=== PATIENT | male | born 1950 | race Caucasian/White ===

== ENCOUNTER 2018-02-27 11:21 | Inpatient (IN) ==
[2018-02-27] MEDS ORDERED: Levofloxacin 750 MG/150 ML 750 MG/150 ML BAG IVPB ONE (11:23)
[2018-02-27] MEDS ORDERED: Piperacillin/Tazobactam 3.375 GM in Water for inj. (sterile) 20 ML 20 ML IVP ONE (11:23)
--- NOTE | 2018-02-27 11:26 | Emergency Department Note ---
Disposition Clinical Impression: Sepsis syndrome, UTI (urinary tract infection) due to urinary indwelling catheter Disposition: Admitted As Inpatient Condition: Fair General Adult HPI - General Chief complaint: ED General Medical Stated complaint: Fever, Cough Time Seen by Provider: 02/27/18 11:23 Source: EMS, other (Supervisor Seaming) Mode of arrival: EMS Limitations: altered mental status (MRDD) Nursing Notes Reviewed: Yes Vital Signs Reviewed: Yes - History of Present Illness HPI Narrative: Patient reportedly has had no specific complaint but he is found at work shop today to be tachycardic and febrile to 105. He did receive 2 Tylenol at 10:55 AM has been transported by private ambulance for evaluation. He is no tenderness a little cough and may be gagging at workshop. He has not had any apparent shortness of breath or sputum production. He has not vomited nor had diarrhea. 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 He has had good urine output and presents with a full Raymond catheter bag. Alexandria lima did report of some aching in his back and neck to EMS. Denying any specific pain or complaint on arrival here. No other significant history is obtainable from the patient. Supervisor Seaming states that he has a baseline does not complain about anything. He is reported to have no ill exposures. For EMS the patient had a blood pressure 117/79, heart rate of 141 with respiratory rate of 16. They reported a saturation of 96% on room air. They recorded a temperature of 105. 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 Denies: confusion, chest pain, diaphoresis, headaches, loss of appetite, malaise, rash, seizure, shortness of breath, syncope, weakness Treatments Prior to Arrival: other (Acetaminophen) - Related Data Home Medications Medication Instructions Recorded Confirmed RX: Atorvastatin [Lipitor] 10 mg PO HS 02/05/15 02/27/18 RX: Docusate Sodium [Colace] 200 mg PO BID 02/05/15 02/27/18 RX: Fenofibrate [Tricor] 67 mg PO HS 02/05/15 02/27/18 RX: Magnesium Oxide [Magnesium] 250 mg PO QAM 02/05/15 02/27/18 RX: Olopatadine HCl [Patanol] 5 ml OP BID 02/05/15 02/27/18 RX: Polyethylene Glycol 3350 1 scoop PO DAILY 02/05/15 02/27/18 [MiraLAX Powder Bulk 17.9 Oz] RX: Tamsulosin [Flomax] 0.4 mg PO DAILY 02/23/15 02/27/18 Ondansetron ODT [Zofran ODT] 4 mg SL Q6HR 01/24/16 02/27/18 Albuterol Sulfate [Proair 180 mcg IH Q4H PRN 08/18/16 02/27/18 Respiclick] Ferrous Sulfate [Iron] 325 mg PO BID 08/18/16 02/27/18 Ipratropium [ATROVENT Inhaler] 1 unit IH Q6H PRN 08/18/16 02/27/18 Levalbuterol HCl [Xopenex Neb] 1.25 mg IH Q8H PRN 08/18/16 02/27/18 Loratadine [Allergy Relief] 10 mg PO DAILY 08/18/16 02/27/18 Acetaminophen [Non-Aspirin] 650 mg PO Q4H PRN 02/27/18 02/27/18 Carbamide Peroxide [Ear Drops] 3 drop OT BID 02/27/18 02/27/18 Cholecalciferol (Vitamin D3) 2,000 unit PO DAILY 02/27/18 02/27/18 [Children's Vitamin D3] Desitin (Zinc Oxide) [Desitin 1 appl TP BID 02/27/18 02/27/18 Diaper Rash 40 % Paste] Dextran 70/Hypromellose 1 drop OP BID 02/27/18 02/27/18 [Artificial Tears] Emollient Combination No.108 237 ml TP DAILY 02/27/18 02/27/18 [Lubriskin] RX: B Complex with Vitamin C 1 each PO BID 02/27/18 02/27/18 [Guerita-Bee with C] RX: Lisinopril 2.5 mg PO DAILY 02/27/18 02/27/18 RX: hydroCHLOROthiazide 25 mg PO DAILY 02/27/18 02/27/18 [Hydrochlorothiazide] Allergies Allergy/AdvReac Type Severity Reaction Status Date / Time apples Allergy See Uncoded 02/07/15 14:04 Comments environmental allergies Allergy See Uncoded 02/07/15 14:04 Comments All systems ED: reviewed and negative except as stated. Past Medical History - Past Medical History Source: old records reviewed, nursing notes reviewed, other (Supervisor Seaming) Medical history: Reports: asthma, GERD, hyperlipidemia, other (CP, MRDD, anemia) Surgical history: Reports: no surgical history Psychiatric history: Reports: other - Social History Smoking Status: Unknown if ever smoked Smokeless Tobacco Status: No Alcohol use: Reports: none Drug use: Reports: none Physical Exam - General Limitations: physical limitation General appearance: alert, in no apparent distress, other (Mildly flushed, pleasant and interactive) - Head Head exam: atraumatic, normocephalic, normal inspection - Eye Eye exam: Present: normal appearance, PERRL, EOMI. Absent: scleral icterus, conjunctival injection - ENT ENT exam: normal exam, normal oropharynx, mucous membranes moist - Neck Neck exam: Present: normal inspection, full ROM, trachea midline - Chest Chest inspection: Present: normal inspection, symmetric chest wall rise - Respiratory Respiratory exam: Present: normal lung sounds bilaterally. Absent: respiratory distress, wheezes, prolonged expiratory phase - Cardiovascular Cardiovascular exam: Present: regular rate, normal rhythm, tachycardia, normal heart sounds - Abdominal Exam Abdominal exam: Present: soft, Non-Tender, normal bowel sounds, other (Raymond catheter is draining a yellow, cloudy urine). Absent: tenderness, distention, guarding, rebound, rigidity - Extremities Exam Extremities exam: Present: normal inspection, full ROM, normal capillary refill. Absent: tenderness, pedal edema - Expanded Lower Extremity Exam Neurovascular/Tendon exam: Present: normal capillary refill Gait: not tested/not observed - Back Exam Back exam: Present: normal inspection, full ROM. Absent: tenderness, CVA tenderness (R), CVA tenderness (L) - Neurological Exam Neurological exam: Present: alert. Absent: motor sensory deficit - Psychiatric Psychiatric exam: Present: normal affect, normal mood. Absent: agitated, anxious - Skin Skin exam: Present: warm, dry, intact, normal color. Absent: cyanosis, diaphoresis, pallor Course Course Narrative: Patient is mainly started on aggressive IV fluids and IV antibiotics. Lactic acid, blood cultures and urine culture have been ordered. Given his significant tachycardia and fever, I anticipate further inpatient care upon return of testing. 1225: With return of all laboratory testing, a page has been placed to Dr. Munoz to discuss further inpatient care. Vital Signs Temperature 103.0 F H 02/27/18 11:23 Pulse Rate 139 02/27/18 11:23 Respiratory Rate 22 02/27/18 11:23 Blood Pressure 141/68 02/27/18 11:23 O2 Sat by Pulse Oximetry 94 02/27/18 11:23 Temperature 103.0 F H 02/27/18 11:23 Pulse Rate 118 02/27/18 13:01 Respiratory Rate 20 02/27/18 13:01 Blood Pressure 177/88 02/27/18 13:01 O2 Sat by Pulse Oximetry 98 02/27/18 13:01 Oxygen Delivery Oxygen Delivery Nasal Cannula Medical Decision Making - Medical Records Medical records reviewed: Yes I reviewed the patient's medical records. - Lab Data Lab results reviewed: Yes I reviewed the patient's lab results. Result diagrams: 02/27/18 11:55 02/27/18 11:55 Lab Results 02/27/18 02/27/18 02/27/18 Range/Units 11:45 11:55 11:55 WBC 13.9 H (4.3-11.1) K/mcL RBC 3.44 L (4.19-5.50) M/mcL Hgb 10.9 L (12.9-16.9) g/dL Hct 32.7 L (37.5-50.1) % MCV 95.1 (83.0-100.0) fL MCH 31.7 (28.0-33.3) pg MCHC 33.3 (31.6-35.5) g/dL RDW 13.1 (11.5-14.5) % Plt Count 265 (140-400) K/mcL MPV 9.5 (9.4-12.4) fL Immature Gran % 0.5 (0-4) % Seg Neutrophils % 93.4 % Lymphocytes % 2.5 % Monocytes % 2.3 % Eosinophils % 1.2 % Basophils % 0.1 % Neutrophils # 13.0 H (1.6-8.9) K/mcL Lymphocytes # 0.4 L (0.6-4.6) K/mcL Monocytes # 0.3 (0.0-1.3) K/mcL Eosinophils # 0.2 (0.0-0.6) K/mcL Basophils # 0.0 (0.0-0.2) K/mcL PT 13.5 H (9.4-12.1) Seconds INR 1.2 APTT 28.8 (26.0-36.0) Seconds Sodium (136-145) mEq/L Potassium (3.5-5.1) mEq/L Chloride (98-107) mEq/L Carbon Dioxide (23-29) mEq/L BUN (8-23) mg/dL Creatinine (0.70-1.30) mg/dL Est GFR ( Amer) (> 60) Est GFR (Non-Af Amer) (> 60) BUN/Creatinine Ratio (6-26) Glucose (70-105) mg/dL Calculated Osmolality (280-300) Lactic Acid (0.5-2.2) mmol/L Calcium (8.6-10.3) mg/dL Phosphorus (2.7-4.5) mg/dL Magnesium (1.6-2.6) mg/dL Total Bilirubin (0.3-1.0) mg/dL Direct Bilirubin (0.0-0.2) mg/dL Indirect Bilirubin (0.0-1.2) mg/dL AST (13-39) Units/L ALT (7-52) Units/L Alkaline Phosphatase (34-104) Units/L Troponin I (< 0.04) ng/mL Serum Total Protein (6.4-8.9) g/dL Albumin (3.5-5.7) g/dL Globulin (2.4-3.5) g/dL Albumin/Globulin Ratio (1.1-2.2) Urine Color Yellow (Yellow) Urine Clarity Turbid A (Clear) Urine pH 7.0 (5.0-8.0) pH Units Ur Specific [place] 1.015 (1.010-1.025) Urine Protein 30 H (Neg-Trace) mg/dL Urine Glucose (UA) Normal (Normal) mg/dL Urine Ketones Negative (Negative) mg/dL Urine Blood Moderate H (Negative) Urine Nitrite Positive A (Negative) Urine Bilirubin Negative (Negative) Urine Urobilinogen Normal (Normal) mg/dL Ur Leukocyte Esterase Large H (Negative) Urine Microscopic RBC 15-30 H (0-3) per hpf Urine Microscopic WBC 15-30 H (0-3) per hpf Ur Squamous Epith Cells Few (None-Few) per lpf Amorphous Sediment Few (Few) Urine Bacteria Many H (None-Few) per hpf Urine Mucus Few (Few) Ur Culture Indicated? YES A (NO) 02/27/18 02/27/18 Range/Units 11:55 11:55 WBC (4.3-11.1) K/mcL RBC (4.19-5.50) M/mcL Hgb (12.9-16.9) g/dL Hct (37.5-50.1) % MCV (83.0-100.0) fL MCH (28.0-33.3) pg MCHC (31.6-35.5) g/dL RDW (11.5-14.5) % Plt Count (140-400) K/mcL MPV (9.4-12.4) fL Immature Gran % (0-4) % Seg Neutrophils % % Lymphocytes % % Monocytes % % Eosinophils % % Basophils % % Neutrophils # (1.6-8.9) K/mcL Lymphocytes # (0.6-4.6) K/mcL Monocytes # (0.0-1.3) K/mcL Eosinophils # (0.0-0.6) K/mcL Basophils # (0.0-0.2) K/mcL PT (9.4-12.1) Seconds INR APTT (26.0-36.0) Seconds Sodium 131 L (136-145) mEq/L Potassium 4.3 (3.5-5.1) mEq/L Chloride 94 L (98-107) mEq/L Carbon Dioxide 28 (23-29) mEq/L BUN 31 H (8-23) mg/dL Creatinine 1.65 H (0.70-1.30) mg/dL Est GFR ( Amer) 51 L (> 60) Est GFR (Non-Af Amer) 42 L (> 60) BUN/Creatinine Ratio 19 (6-26) Glucose 106 H (70-105) mg/dL Calculated Osmolality 279 L (280-300) Lactic Acid 2.1 (0.5-2.2) mmol/L Calcium 11.0 H (8.6-10.3) mg/dL Phosphorus 2.3 L (2.7-4.5) mg/dL Magnesium 1.4 L (1.6-2.6) mg/dL Total Bilirubin 0.5 (0.3-1.0) mg/dL Direct Bilirubin 0.1 (0.0-0.2) mg/dL Indirect Bilirubin 0.4 (0.0-1.2) mg/dL AST 30 (13-39) Units/L ALT 30 (7-52) Units/L Alkaline Phosphatase 89 (34-104) Units/L Troponin I < 0.03 (< 0.04) ng/mL Serum Total Protein 7.5 (6.4-8.9) g/dL Albumin 3.4 L (3.5-5.7) g/dL Globulin 4.1 H (2.4-3.5) g/dL Albumin/Globulin Ratio 0.8 L (1.1-2.2) Urine Color (Yellow) Urine Clarity (Clear) Urine pH (5.0-8.0) pH Units Ur Specific [place] (1.010-1.025) Urine Protein (Neg-Trace) mg/dL Urine Glucose (UA) (Normal) mg/dL Urine Ketones (Negative) mg/dL Urine Blood (Negative) Urine Nitrite (Negative) Urine Bilirubin (Negative) Urine Urobilinogen (Normal) mg/dL Ur Leukocyte Esterase (Negative) Urine Microscopic RBC (0-3) per hpf Urine Microscopic WBC (0-3) per hpf Ur Squamous Epith Cells (None-Few) per lpf Amorphous Sediment (Few) Urine Bacteria (None-Few) per hpf Urine Mucus (Few) Ur Culture Indicated? (NO) - Radiology Data Radiology results reviewed: Yes I reviewed the patient's radiology results. Single view chest x-ray is performed. This does not demonstrate evidence for infiltrate, effusion, pneumothorax, foreign body or heart failure. Patient has right lower lung "extrapleural fat" that is unchanged from previous imaging. The cardiac silhouette is normal. I do not see abnormality to the osseous structures of the chest. This is on my interpretation. Impressions Chest X-Ray 02/27/18 11:24 IMPRESSION: Large hiatal hernia no acute cardiopulmonary disease. D/ / Shayne Hernandez MD / Shayne Hernandez MD Interpreting Provider: Shayne Hernandez MD Critical Care Time Critical Care Time: Yes Total Critical Care Time: 50 Attestation: As this patient did present with signs and symptoms of potential life- threatening illness requiring my urgent intervention, total critical care time in this patient's care has been 60 minutes, not withstanding separately reportable procedures.
[2018-02-27 11:51] LABS: Bilirubin,Urine Negative (Negative); Blood,Urine Moderate (Negative); Clarity,Urine Turbid (Clear); Color,Urine Yellow (Yellow); Glucose,Urine (UA) Normal (Normal); Ketones,Urine Negative (Negative); Leukocyte Esterase,Urine Large (Negative); Nitrite,Urine Positive (Negative); Protein,Urine 30 mg/dL (Neg-Trace); Specific Gravity,Urine 1.015 (1.010-1.025); Urobilinogen,Urine Normal (Normal)
[2018-02-27 11:57] LABS: Amorphous Sediment,Urine Few (Few); Bacteria,Urine Many per hpf (None-Few); Mucus,Urine Few (Few); RBC,Urine 15-30 per hpf (0-3); Squamous Epithelial Cell,Urine Few per lpf (None-Few); WBC,Urine 15-30 per hpf (0-3)
[2018-02-27 12:02] LABS: Basophils % 0.1 %; Eosinophils # 0.2 K/mcL (0.0-0.6); Eosinophils % 1.2 %; Hematocrit 32.7 % (37.5-50.1); Hemoglobin 10.9 g/dL (12.9-16.9); Immature Granulocytes % 0.5 % (0-4); Lymphocytes % 2.5 %; Mean Corpuscular HGB Conc 33.3 g/dL (31.6-35.5); Mean Corpuscular Hemoglobin 31.7 pg (28.0-33.3); Mean Corpuscular Volume 95.1 fL (83.0-100.0); Mean Platelet Volume 9.5 fL (9.4-12.4); Monocytes # 0.3 K/mcL (0.0-1.3); Monocytes % 2.3 %; Platelet Count 265 K/mcL (140-400); Red Blood Count 3.44 M/mcL (4.19-5.50); Red Cell Distribution Width 13.1 % (11.5-14.5); Segmented Neutrophils % 93.4 %
[2018-02-27 12:08] LABS: Lymphocytes # 0.4 K/mcL (0.6-4.6)
[2018-02-27] MEDS: 0.9 % Sodium Chloride 1,000 ML IVC SCH ×3 (12:10→17:17)
[2018-02-27 12:11] LABS: INR 1.2; Prothrombin Time 13.5 Seconds (9.4-12.1)
[2018-02-27 12:13] LABS: Activated Partial Thrombo Time 28.8 Seconds (26.0-36.0)
[2018-02-27 12:18] LABS: Alanine Aminotransferase 30 Units/L (7-52); Albumin 3.4 g/dL (3.5-5.7); Albumin/Globulin Ratio 0.8 (1.1-2.2); Alkaline Phosphatase 89 Units/L (34-104); Aspartate Amino Transferase 30 Units/L (13-39); BUN/Creatinine Ratio 19 (6-26); Bilirubin,Direct 0.1 mg/dL (0.0-0.2); Bilirubin,Indirect 0.4 mg/dL (0.0-1.2); Bilirubin,Total 0.5 mg/dL (0.3-1.0); Blood Urea Nitrogen 31 mg/dL (8-23); Carbon Dioxide 28 mEq/L (23-29); Chloride 94 mEq/L (98-107); Globulin 4.1 g/dL (2.4-3.5); Glucose 106 mg/dL (70-105); Magnesium 1.4 mg/dL (1.6-2.6); Osmolality,Calculated 279 (280-300); Phosphorous 2.3 mg/dL (2.7-4.5); Potassium 4.3 mEq/L (3.5-5.1); Sodium 131 mEq/L (136-145); Total Protein 7.5 g/dL (6.4-8.9); eGFR For Non-African Americans 42 (> 60)
[2018-02-27 12:22] LABS: Troponin I < 0.03 ng/mL (< 0.04)
[2018-02-27] MEDS ORDERED: Naloxone 0.4 MG/ML INJ IVP PRN (13:25)
[2018-02-27] MEDS ORDERED: 0.9 % Sodium Chloride 1,000 ML IVC SCH (13:25)
[2018-02-27] MEDS ORDERED: Ibuprofen 400 MG TABLET PO PRN (13:25)
[2018-02-27] MEDS ORDERED: Ipratropium 1 PUFF INHALER IH PRN (16:00)
[2018-02-27] MEDS: Acetaminophen 325 MG TABLET PO PRN (16:50)
[2018-02-27] MEDS: Ondansetron ODT 4 MG TAB.RAPDIS SL SCH (17:17)
--- NOTE | 2018-02-27 17:44 | Internal Med History&Physical ---
Date of Encounter: 02/27/18 Time of Encounter: 17:20 Assessment and Plan (1) Sepsis syndrome Current visit: Yes Status: Acute Possible UTI. He has been started on Levaquin and Rocephin empirically. Urine culture has been ordered. Lactobacillus will be added. (2) Anemia Current visit: Yes Status: Acute Likely due to chronic kidney disease. Anemia testing 12/13/2017 showed no fac tor deficiency. Qualifiers: Anemia type: unspecified type Qualified Code(s): D64.9 - Anemia, unspecified (3) CKD (chronic kidney disease) stage 3, GFR 30-59 ml/min Current visit: Yes Status: Chronic Monitor renal indices. (4) Hypomagnesemia Current visit: Yes Status: Acute Magnesium level low at 1.4. Increase magnesium oxide to 400 mg twice a day (5) Hypercalcemia Current visit: No Status: Resolved Corrected calcium level approximately 11.5. Recheck calcium and check vitamin D levels in a.m. Internal Medicine - H&P: HPI Chief complaint: Fever and tachycardia Admitted From: Emergency Dept History of present illness: Mr. Burns is a 67 year old male who was brought to emergency room after he was found to have temperature 100.5 tachycardia at workshop. He was evaluated in emergency room and admitted to [facility] floor with diagnosis of UTI with sepsis. Most recent hospitalization was January 2015 for possible UTI. He has an ind welling Raymond catheter because of BPH. His history is significant otherwise for right kidney atrophy with moderate hydronephrosis and hydroureter and right renal cyst measuring 5.8 x [address] scan in 02/26/2014. CT of abdomen pelvis 01/24/2016 did not show these findings. He had left hydronephrosis with small left ureter dilatation seen during his August 2014 hospitalization. These were not seen on CT 01/24/2016. He has known BPH and CKD stage 3. Past Med Surg Social Fam HX - Past Medical History Medical history: asthma, GERD, hyperlipidemia, other Additional medical history: Right Kidney Cervical Stenosis. Hypomagnesemia. Anemia. hiatal hernia. mild aortic tricuspid insuff. cerebral palsy Psychiatric history: other - Past Surgical History Surgical History: no surgical history Additional surgical history: left orchiectomy - Social History Smoking Status: Unknown if ever smoked Smokeless Tobacco Status: No Alcohol use: none Drug use: none Internal Medicine - H&P: Meds Atorvastatin [Lipitor] 10 mg PO HS 02/05/15 [History] Docusate Sodium [Colace] 200 mg PO BID 02/05/15 [History] Fenofibrate [Tricor] 67 mg PO HS 02/05/15 [History] Magnesium Oxide [Magnesium] 250 mg PO QAM 02/05/15 [History] Olopatadine HCl [Patanol] 5 ml OP BID 02/05/15 [History] Polyethylene Glycol 3350 [MiraLAX Powder Bulk 17.9 Oz] 1 scoop PO DAILY 02/05/15 [History] Tamsulosin [Flomax] 0.4 mg PO DAILY 02/23/15 [History] Ondansetron ODT [Zofran ODT] 4 mg SL Q6HR 01/24/16 [History] Albuterol Sulfate [Proair Respiclick] 180 mcg IH Q4H PRN 08/18/16 [History] Ferrous Sulfate [Iron] 325 mg PO BID 08/18/16 [History] Ipratropium [ATROVENT Inhaler] 1 unit IH Q6H PRN 08/18/16 [History] Levalbuterol HCl [Xopenex Neb] 1.25 mg IH Q8H PRN 08/18/16 [History] Loratadine [Allergy Relief] 10 mg PO DAILY 08/18/16 [History] Acetaminophen [Non-Aspirin] 650 mg PO Q4H PRN 02/27/18 [History] B Complex with Vitamin C [Guerita-Bee with C] 1 each PO BID 02/27/18 [History] Carbamide Peroxide [Ear Drops] 3 drop OT BID 02/27/18 [History] Cholecalciferol (Vitamin D3) [Children's Vitamin D3] 2,000 unit PO DAILY 02/27/18 [History] Desitin (Zinc Oxide) [Desitin Diaper Rash 40 % Paste] 1 appl TP BID 02/27/18 [History] Dextran 70/Hypromellose [Artificial Tears] 1 drop OP BID 02/27/18 [History] Emollient Combination No.108 [Lubriskin] 237 ml TP DAILY 02/27/18 [History] Lisinopril 2.5 mg PO DAILY 02/27/18 [History] hydroCHLOROthiazide [Hydrochlorothiazide] 25 mg PO DAILY 02/27/18 [History] Allergy/AdvReac Type Severity Reaction Status Date / Time apples Allergy See Uncoded 02/07/15 14:04 Comments environmental allergies Allergy See Uncoded 02/07/15 14:04 Comments All Systems PM: A 10-system review of systems was performed and is negative for pertinent findings except as documented above in the HPI. Review of systems: Gen.: His weight has minimally changed from 197 pounds at the August 2014 hospitalization to 90.5 kg at present Cardiovascular. The chart reports aortic and tricuspid insufficiency. There is no known hypertension or DC. He had an echocardiogram done February 2014 which showed LVEF 65% with normal LV systolic and diastolic function. No significant valvular normalities reported. There is no known DVT or pulmonary embolus. Respiratory: He denies ever being a cigarette smoker. The chart reports diagnoses of chronic bronchitis and asthma. GI: He has a significant hiatal hernia with much of the stomach in the chest cavity. He has GERD and history of hemorrhoids. He had a possible small bowel obstruction with hospitalization at [facility] January 2014 which resolved spontaneously. He has an umbilical hernia. : As per history of present illness Endocrine: He has no known diabetes or thyroid disease but does have hyperlipidemia Hematology/oncology: He has anemia without factor deficiency seen on workup August 2014. There is no other known blood disorders or internal malignancies Psychiatric: He has no known psychiatric history Neurologic: He has MRDD and cerebral palsy but no large distribution strokes or seizures. [place] skeletal: He does not walk. The chart reports a diagnosis of cervical stenosis. - Constitutional Vitals: Temp Pulse Resp BP Pulse Ox 100.4 F H 117 22 107/70 96 02/27/18 13:45 02/27/18 13:45 02/27/18 13:45 02/27/18 13:45 02/27/18 13:45 Exam: Gen.: He is a well-developed well-nourished male lying comfortably in bed who appears in no acute distress. He denies pain or dyspnea. HEENT: Head is atraumatic and normocephalic. Eyes: EOMI. There is no scleral icterus. Mouth: Mucosa is moist. Neck: Supple and nontender. There is no thyromegaly or adenopathy noted. Heart: Regular without murmurs gallops or ectopics Lungs: No wheezes or crackles are heard. Abdomen: Soft and nontender. No masses or guarding are noted. Extremities: He is wearing CHARANJIT hose which I did not remove. There is no pitting edema palpated through the CHARANJIT hose. Neurologic: Mental status: He is awake and alert and attempts to answer questions. His speech is sometimes not understandable. Cranial nerves: Smile is symmetric. Forehead wrinkles bilaterally. Tongue protrudes midline. EOMI. Motor: He does not pronate his arms well. There is no pronator drift from his baseline position. Cerebellar: Finger to nose is intact bilaterally. Skin: Warm and dry Internal Med - H&P Results - Labs CBC & Chem 7: 02/27/18 11:55 02/27/18 11:55 Labs: Short CBC 02/27/18 Range/Units 11:55 WBC 13.9 H (4.3-11.1) K/mcL Hgb 10.9 L (12.9-16.9) g/dL Hct 32.7 L (37.5-50.1) % Plt Count 265 (140-400) K/mcL Neutrophils # 13.0 H (1.6-8.9) K/mcL BMP 02/27/18 11:55 Sodium 131 L Potassium 4.3 Chloride 94 L Carbon Dioxide 28 BUN 31 H Creatinine 1.65 H Glucose 106 H Calcium 11.0 H Cardiac Enzymes 02/27/18 Range/Units 11:55 Troponin I < 0.03 (< 0.04) ng/mL Liver Function 02/27/18 Range/Units 11:55 Total Bilirubin 0.5 (0.3-1.0) mg/dL Direct Bilirubin 0.1 (0.0-0.2) mg/dL AST 30 (13-39) Units/L ALT 30 (7-52) Units/L Alkaline Phosphatase 89 (34-104) Units/L Albumin 3.4 L (3.5-5.7) g/dL Urine 02/27/18 Range/Units 11:45 Urine Color Yellow (Yellow) Urine Clarity Turbid A (Clear) Urine pH 7.0 (5.0-8.0) pH Units Ur Specific [place] 1.015 (1.010-1.025) Urine Protein 30 H (Neg-Trace) mg/dL Urine Glucose (UA) Normal (Normal) mg/dL - Impressions ITS Impressions Chest X-Ray 02/27/18 11:24 IMPRESSION: Large hiatal hernia. No acute cardiopulmonary disease. D/ / 02/27/2018 12:00:22 Shayne Hernandez MD / [email or web address] Interpreting Provider: Shayne Hernandez MD
[2018-02-27] MEDS: Piperacillin/Tazobactam 3.375 GM in 0.9 % Sodium Chloride Mini Bag 100 ML IVPB SCH (20:37)
[2018-02-27] MEDS: Fenofibrate 54 MG TABLET PO SCH (20:38)
[2018-02-27] MEDS: Magnesium Oxide 400 MG TABLET PO SCH (20:38)
[2018-02-27] MEDS: Lactobacillus 1 EACH CAP.SPRINK PO SCH (20:38)
[2018-02-27] MEDS: (Olopatadine Hcl [Patanol] 5 ML) OP SCH (20:39)
[2018-02-27] MEDS: Levalbuterol Neb 1.25 MG/3 ML IH PRN (23:09)
[2018-02-28] MEDS: Piperacillin/Tazobactam 3.375 GM in 0.9 % Sodium Chloride Mini Bag 100 ML IVPB SCH ×3 (00:31→10:50)
[2018-02-28] MEDS: 0.9 % Sodium Chloride 1,000 ML IVC SCH (00:38)
[2018-02-28] MEDS: Ondansetron ODT 4 MG TAB.RAPDIS SL SCH ×4 (03:52→17:08)
[2018-02-28 08:36] LABS: Hematocrit 31.5 % (37.5-50.1); Hemoglobin 9.9 g/dL (12.9-16.9); Mean Corpuscular HGB Conc 31.4 g/dL (31.6-35.5); Mean Corpuscular Hemoglobin 31.8 pg (28.0-33.3); Mean Corpuscular Volume 101.3 fL (83.0-100.0); Mean Platelet Volume 9.7 fL (9.4-12.4); Platelet Count 209 K/mcL (140-400); Red Blood Count 3.11 M/mcL (4.19-5.50); Red Cell Distribution Width 13.7 % (11.5-14.5)
[2018-02-28] MEDS ORDERED: Magnesium Oxide 400 MG TABLET PO SCH (09:00)
[2018-02-28 09:24] LABS: Enterococcus by PCR Not Detected (Not Detect); Staphylococcus aureus by PCR DETECTED (Not Detect); Staphylococcus by PCR DETECTED (Not Detect); mecA Methicillin-Resist Gene DETECTED (Not Detect)
[2018-02-28 09:25] LABS: Acinetobacter baumannii by PCR Not Detected (Not Detect); Candida albicans by PCR Not Detected (Not Detect); Candida glabrata by PCR Not Detected (Not Detect); Candida krusei by PCR Not Detected (Not Detect); Candida parapsilosis by PCR Not Detected (Not Detect); Candida tropicalis by PCR Not Detected (Not Detect); Enterobacter cloacae Cmplx PCR Not Detected (Not Detect); Enterobacteriaceae by PCR Not Detected (Not Detect); Escherichia coli by PCR Not Detected (Not Detect); Klebsiella oxytoca by PCR Not Detected (Not Detect); Klebsiella pneumoniae by PCR Not Detected (Not Detect); Proteus by PCR Not Detected (Not Detect); Pseudomonas aeruginosa by PCR Not Detected (Not Detect); Serratia marcescens by PCR Not Detected (Not Detect); Streptococcus agalactiae(B)PCR Not Detected (Not Detect); Streptococcus by PCR Not Detected (Not Detect); Streptococcus pneumoniae PCR Not Detected (Not Detect); Streptococcus pyogenes (A) PCR Not Detected (Not Detect)
--- NOTE | 2018-02-28 09:56 | Internal Med Progress Note ---
Date of Encounter: 02/28/18 Time of Encounter: 09:50 - Assessment and plan (1) Sepsis syndrome Current Visit: Yes Status: Acute Assessment and plan: February 28. Serology report shows MRSA. Discontinue Zosyn and start vancomycin . Continue Levaquin and lactobacillus. (2) Anemia Current Visit: Yes Status: Acute Assessment and plan: February 28. Hemoglobin decreased to 9.9. Continue to monitor. Qualifiers: Anemia type: unspecified type Qualified Code(s): D64.9 - Anemia, un specified (3) CKD (chronic kidney disease) stage 3, GFR 30-59 ml/min Current Visit: Yes Status: Chronic Assessment and plan: February 28. Labs pending (4) Hypomagnesemia Current Visit: Yes Status: Acute Assessment and plan: February 28. Continue higher dose magnesium and monitor labs. (5) Hypercalcemia Current Visit: No Status: Acute Assessment and plan: February 28. Remain off vitamin D. Labs from this a.m. pending - Subjective Interval history: February 28. He has no new complaints and specifically denies pain or dyspnea. Temperature spiked to 106.8 last evening. Cooling blanket was applied and temperature has decreased to 99.9 now. - Constitutional Vitals: Temp Pulse Resp BP Pulse Ox 106.8 F H 141 44 105/55 94 02/27/18 23:48 02/27/18 22:22 02/27/18 23:09 02/27/18 22:22 02/27/18 23:09 Exam: He is resting comfortably in bed and appears in no acute distress. His affect is overall cheerful. I reviewed his medications and lab results. Internal Medicine: Result - Labs CBC & Chem 7: 02/28/18 08:05 02/27/18 11:55 Labs: Short CBC 02/27/18 02/28/18 Range/Units 11:55 08:05 WBC 13.9 H 19.0 H (4.3-11.1) K/mcL Hgb 10.9 L 9.9 L (12.9-16.9) g/dL Hct 32.7 L 31.5 L (37.5-50.1) % Plt Count 265 209 (140-400) K/mcL Neutrophils # 13.0 H (1.6-8.9) K/mcL BMP 02/27/18 11:55 Sodium 131 L Potassium 4.3 Chloride 94 L Carbon Dioxide 28 BUN 31 H Creatinine 1.65 H Glucose 106 H Calcium 11.0 H Cardiac Enzymes 02/27/18 Range/Units 11:55 Troponin I < 0.03 (< 0.04) ng/mL Liver Function 02/27/18 Range/Units 11:55 Total Bilirubin 0.5 (0.3-1.0) mg/dL Direct Bilirubin 0.1 (0.0-0.2) mg/dL AST 30 (13-39) Units/L ALT 30 (7-52) Units/L Alkaline Phosphatase 89 (34-104) Units/L Albumin 3.4 L (3.5-5.7) g/dL Urine 02/27/18 Range/Units 11:45 Urine Color Yellow (Yellow) Urine Clarity Turbid A (Clear) Urine pH 7.0 (5.0-8.0) pH Units Ur Specific [place] 1.015 (1.010-1.025) Urine Protein 30 H (Neg-Trace) mg/dL Urine Glucose (UA) Normal (Normal) mg/dL - ABG Interpretation ABG results: PT/INR, D-dimer PT 13.5 Seconds (9.4-12.1) H 02/27/18 11:55 - Impressions Impressions Chest X-Ray 02/27/18 11:24 IMPRESSION: Large hiatal hernia. No acute cardiopulmonary disease. D/ / 02/27/2018 12:00:22 Shayne Hernandez MD / [email or web address] Interpreting Provider: Shayne Hernandez MD - VTE Documentation of Mechanical Device: Graduated compression elastic hosiery Consult Discharge Plan - Plan Referrals: Ashley Qureshi MD [Primary Care Provider] - 1 week
[2018-02-28 10:02] LABS: Anisocytosis 1+ (Not Present); Lymphocytes # 0.8 K/mcL (0.6-4.6); Monocytes # 0.8 K/mcL (0.0-1.3); Neutrophils # 17.1 K/mcL (1.6-8.9); Platelet Estimate Normal (Normal)
[2018-02-28 10:03] LABS: Toxic Vacuolation Present (Not Present)
[2018-02-28 10:21] LABS: Potassium 4.5 mEq/L (3.5-5.1)
[2018-02-28 10:22] LABS: Albumin 2.9 g/dL (3.5-5.7); Albumin/Globulin Ratio 0.9 (1.1-2.2); Bilirubin,Total 0.9 mg/dL (0.3-1.0); Globulin 3.2 g/dL (2.4-3.5); Total Protein 6.1 g/dL (6.4-8.9)
[2018-02-28] MEDS: Magnesium Oxide 400 MG TABLET PO SCH ×2 (10:24→20:32)
[2018-02-28] MEDS: Loratadine 10 MG TABLET PO SCH (10:25)
[2018-02-28] MEDS: (Olopatadine Hcl [Patanol] 5 ML) OP SCH (10:25)
[2018-02-28] MEDS: Lactobacillus 1 EACH CAP.SPRINK PO SCH ×2 (10:25→20:31)
[2018-02-28] MEDS: Levalbuterol Neb 1.25 MG/3 ML IH PRN ×2 (12:29→21:03)
[2018-02-28] MEDS: Acetaminophen 325 MG TABLET PO PRN (13:45)
[2018-02-28] MEDS: Fenofibrate 54 MG TABLET PO SCH (20:31)
[2018-03-01] MEDS: (Olopatadine Hcl [Patanol] 5 ML) OP SCH ×3 (00:10→22:02)
[2018-03-01] MEDS: Ondansetron ODT 4 MG TAB.RAPDIS SL SCH ×4 (00:11→17:32)
[2018-03-01] MEDS: Acetaminophen 325 MG TABLET PO PRN (04:45)
[2018-03-01 05:50] LABS: Basophils % 0.3 %; Eosinophils # 0.2 K/mcL (0.0-0.6); Eosinophils % 1.7 %; Hematocrit 22.4 % (37.5-50.1); Hemoglobin 7.4 g/dL (12.9-16.9); Immature Granulocytes % 0.7 % (0-4); Lymphocytes # 0.5 K/mcL (0.6-4.6); Lymphocytes % 4.6 %; Mean Corpuscular Hemoglobin 31.5 pg (28.0-33.3); Mean Corpuscular Volume 95.3 fL (83.0-100.0); Mean Platelet Volume 9.7 fL (9.4-12.4); Monocytes # 0.9 K/mcL (0.0-1.3); Monocytes % 7.9 %; Platelet Count 179 K/mcL (140-400); Red Blood Count 2.35 M/mcL (4.19-5.50); Red Cell Distribution Width 13.8 % (11.5-14.5)
[2018-03-01 06:05] LABS: Calcium 8.1 mg/dL (8.6-10.3); Potassium 3.7 mEq/L (3.5-5.1)
[2018-03-01 06:39] LABS: Platelet Estimate Normal (Normal); Segmented Neutrophils % 72.8 %
[2018-03-01 06:48] LABS: Magnesium 1.5 mg/dL (1.6-2.6)
[2018-03-01] MEDS: *HR* Enoxaparin 40 MG/0.4 ML SYRINGE SQ SCH (06:48)
[2018-03-01] MEDS ORDERED: Levofloxacin 750 MG/150 ML 750 MG/150 ML BAG IVPB SCH (09:00)
--- NOTE | 2018-03-01 09:18 | Internal Med Progress Note ---
Date of Encounter: 03/01/18 Time of Encounter: 09:05 - Assessment and plan (1) Sepsis syndrome Current Visit: Yes Status: Acute Assessment and plan: February 28. Serology report shows MRSA. Discontinue Zosyn and start vancomycin . Continue Levaquin and lactobacillus. March 01. WBC decreased to 11.8 with improved left shift. Continue vancomycin, Levaquin, and lactobacillus. (2) Anemia Current Visit: Yes Status: Acute Assessment and plan: February 28. Hemoglobin decreased to 9.9. Continue to monitor. March 01. Hemoglobin decreased to 7.4. Decrease IV fluid rate. Await iron profile results. Qualifiers: Anemia type: unspecified type Qualified Code(s): D64.9 - Anemia, unspecified (3) CKD (chronic kidney disease) stage 3, GFR 30-59 ml/min Current Visit: Yes Status: Chronic Assessment and plan: February 28. Labs pending March 01. BUN and creatinine improved to 31 and 1.80 respectively. Continue IV fluids at slightly reduced rate. (4) Hypomagnesemia Current Visit: Yes Status: Acute Assessment and plan: February 28. Continue higher dose magnesium and monitor labs. March 01. Magnesium level slightly improved at 1.5. Continue magnesium oxide 400 mg twice a day. (5) Hypercalcemia Current Visit: No Status: Acute Assessment and plan: February 28. Remain off vitamin D. Labs from this a.m. pending March 01. Calcium level 8.1. Continue to withhold vitamin D. - Subjective Interval history: February 28. He has no new complaints and specifically denies pain or dyspnea. Temperature spiked to 106.8 last evening. Cooling blanket was applied and temperature has decreased to 99.9 now. March 01. He has no new complaints. He specifically denies pain or dyspnea. - Constitutional Vitals: Temp Pulse Resp BP Pulse Ox 98.6 F 89 18 86/57 99 03/01/18 06:25 03/01/18 06:25 03/01/18 06:25 03/01/18 06:25 03/01/18 06:25 Exam: He is resting comfortably in bed. He has prolonged expiratory phase and mild diffuse wheezing. He is wearing CHARANJIT hose. Extremities show no edema. I reviewed his medications and lab results. Internal Medicine: Result - Labs CBC & Chem 7: 03/01/18 05:34 03/01/18 05:34 Labs: Short CBC 02/28/18 03/01/18 Range/Units 08:05 05:34 WBC 19.0 H 11.8 H (4.3-11.1) K/mcL Hgb 9.9 L 7.4 L D (12.9-16.9) g/dL Hct 31.5 L 22.4 L (37.5-50.1) % Plt Count 209 179 (140-400) K/mcL Neutrophils # 17.1 H 10.0 H (1.6-8.9) K/mcL BMP 02/28/18 03/01/18 06:40 05:34 Sodium 134 L 133 L Potassium 4.5 3.7 Chloride 102 104 Carbon Dioxide 18 L 24 BUN 34 H 30 H Creatinine 2.41 H 1.80 H Glucose 85 86 Calcium 9.0 8.1 L Liver Function 02/28/18 Range/Units 06:40 Total Bilirubin 0.9 (0.3-1.0) mg/dL AST 49 H (13-39) Units/L ALT 33 (7-52) Units/L Alkaline Phosphatase 87 (34-104) Units/L Albumin 2.9 L (3.5-5.7) g/dL - ABG Interpretation ABG results: PT/INR, D-dimer PT 13.5 Seconds (9.4-12.1) H 02/27/18 11:55 - VTE Documentation of Mechanical Device: Graduated compression elastic hosiery Consult Discharge Plan - Plan Referrals: Ashley Qureshi MD [Primary Care Provider] - 1 week
[2018-03-01] MEDS: Loratadine 10 MG TABLET PO SCH (09:33)
[2018-03-01] MEDS: Magnesium Oxide 400 MG TABLET PO SCH ×2 (09:34→22:02)
[2018-03-01] MEDS: Lactobacillus 1 EACH CAP.SPRINK PO SCH ×2 (09:34→22:02)
[2018-03-01] MEDS: 0.45 % Sodium Chloride w/KCl 20 MEQ/1,000 ML MLS IVC SCH (11:39)
[2018-03-01] MEDS ORDERED: Iron Sucrose Complex 400 MG in 0.9 % Sodium Chloride 250 ML IVPB ONE (11:56)
[2018-03-01] MEDS ORDERED: *HR* Digoxin 0.25 MG TABLET PO ONE (12:00)
[2018-03-01] MEDS: Fenofibrate 54 MG TABLET PO SCH (22:02)
[2018-03-02] MEDS: 0.45 % Sodium Chloride w/KCl 20 MEQ/1,000 ML MLS IVC SCH (03:57)
[2018-03-02] MEDS: Ondansetron ODT 4 MG TAB.RAPDIS SL SCH ×3 (03:57→11:14)
[2018-03-02 05:50] LABS: Basophils # 0.1 K/mcL (0.0-0.2); Basophils % 0.5 %; Eosinophils # 0.6 K/mcL (0.0-0.6); Eosinophils % 5.5 %; Hematocrit 24.4 % (37.5-50.1); Lymphocytes % 8.6 %; Mean Corpuscular HGB Conc 32.8 g/dL (31.6-35.5); Mean Corpuscular Hemoglobin 31.6 pg (28.0-33.3); Mean Corpuscular Volume 96.4 fL (83.0-100.0); Mean Platelet Volume 9.8 fL (9.4-12.4); Monocytes # 1.1 K/mcL (0.0-1.3); Monocytes % 9.7 %; Platelet Count 206 K/mcL (140-400); Red Blood Count 2.53 M/mcL (4.19-5.50); Red Cell Distribution Width 14.3 % (11.5-14.5); Segmented Neutrophils % 74.7 %
[2018-03-02] MEDS: *HR* Enoxaparin 40 MG/0.4 ML SYRINGE SQ SCH (06:29)
[2018-03-02 06:33] LABS: Albumin 2.6 g/dL (3.5-5.7); Albumin/Globulin Ratio 0.8 (1.1-2.2); Bilirubin,Total 0.4 mg/dL (0.3-1.0); Calcium 8.7 mg/dL (8.6-10.3); Globulin 3.2 g/dL (2.4-3.5); Potassium 4.4 mEq/L (3.5-5.1); Total Protein 5.8 g/dL (6.4-8.9)
[2018-03-02 06:40] LABS: Neutrophils # 8.4 K/mcL (1.6-8.9)
[2018-03-02 07:31] VITALS: BP 100/67
[2018-03-02] MEDS: (Olopatadine Hcl [Patanol] 5 ML) OP SCH (08:13)
[2018-03-02] MEDS: Loratadine 10 MG TABLET PO SCH (08:48)
[2018-03-02] MEDS: Lactobacillus 1 EACH CAP.SPRINK PO SCH (08:49)
[2018-03-02] MEDS: Magnesium Oxide 400 MG TABLET PO SCH (08:49)
[2018-03-02] MEDS ORDERED: *HR* Digoxin 0.125 MG TABLET PO SCH (09:00)
--- NOTE | 2018-03-02 09:00 | Discharge Summary ---
Orders not resulted at time of discharge: Pending orders 02/27/18 12:05 Culture,Blood [BC] Stat 03/02/18 09:00 Vancomycin,Trough Timed Date of Encounter: 03/02/18 Time of Encounter: 08:53 - Discharge Diagnosis (1) Sepsis syndrome Priority: Primary Status: Resolved (2) Anemia Priority: Secondary Status: Acute Qualifiers: Anemia type: unspecified type Qualified Code(s): D64.9 - Anemia, unspecified (3) CKD (chronic kidney disease) stage 3, GFR 30-59 ml/min Priority: Secondary Status: Chronic (4) Hypomagnesemia Priority: Secondary Status: Acute (5) Hypercalcemia Priority: Secondary Status: Resolved Hospital course: Mr. Burns is a 67 year old male who was brought to emergency room after he was found to have temperature 100.5 tachycardia at workshop. He was evaluated in emergency room and admitted to [facility] floor with diagnosis of UTI with sepsis. Initial orders were written by the emergency room physician. I saw him on February 27 and performed a history and physical. He was initially given IV Zosyn and Levaquin. Serology report showed MRSA and he was changed from Zosyn to vancomycin. He had clinical improvement with WBC returning to near normal at 11.3 on day of discharge with resolution of left shift on differential. He will be prescribed doxycycline and probiotic for 5 additional days at discharge. Lisinopril and hydrochlorothiazide were discontinued because of azotemia and hypotension. BUN and creatinine improved to 22 and 1.43 respectively by day of discharge with estimated GFR 49. Blood pressure improved. He will remain off lisinopril and hydrochlorothiazide at discharge. BN peptide returned elevated at 506. Lanoxin was started. This will be continued at discharge. He will remain off lisinopril and hydrochlorothiazide as above because of hypotension and azotemia. Anemia testing showed iron 18, transferrin saturation 10%, transferrin 124, and ferritin 459. Hemoglobin decrease to 7.4 on March 01 but had risen to 8.0 March 02. He will be prescribed ferrous sulfate with ascorbic acid. His PCP can monitor labs. Magnesium level returned low at 1.4. He will be changed to magnesium oxide 400 mg twice a day at discharge. 1 week supply was prescribed. His PCP can monitor labs and adjust dose as needed. Hypercalcemia resolved by withholding vitamin D and giving IV fluids. Vitamin D level returned within therapeutic range at 46. He will be restarted on lower dose vitamin D at discharge. His PCP can monitor labs. [facility] and follow with his PCP Dr. Qureshi within 1 week. CBC, BMP, and BN peptide will be checked in 3 days. - Time Spent with Patient Total time spent providing and/or coordinating discharge services: - Discharge Medications Prescriptions: Digoxin [Lanoxin] 0.125 mg PO DAILY #30 tablet Doxycycline 100 mg PO BID #10 capsule Lactobacillus [Culturelle] 1 each PO BID #10 cap.sprink Magnesium Oxide [Mag-Ox] 400 mg PO BID #14 tablet Home Medications: Atorvastatin [Lipitor] 10 mg PO HS 02/05/15 [History] Docusate Sodium [Colace] 200 mg PO BID 02/05/15 [History] Fenofibrate [Tricor] 67 mg PO HS 02/05/15 [History] Olopatadine HCl [Patanol] 5 ml OP BID 02/05/15 [History] Polyethylene Glycol 3350 [MiraLAX Powder Bulk 17.9 Oz] 1 scoop PO DAILY 02/05/15 [History] Tamsulosin [Flomax] 0.4 mg PO DAILY 02/23/15 [History] Ondansetron ODT [Zofran ODT] 4 mg SL Q6HR 01/24/16 [History] Albuterol Sulfate [Proair Respiclick] 180 mcg IH Q4H PRN 08/18/16 [History] Ferrous Sulfate [Iron] 325 mg PO BID 08/18/16 [History] Ipratropium [ATROVENT Inhaler] 1 unit IH Q6H PRN 08/18/16 [History] Levalbuterol HCl [Xopenex Neb] 1.25 mg IH Q8H PRN 08/18/16 [History] Loratadine [Allergy Relief] 10 mg PO DAILY 08/18/16 [History] Acetaminophen [Non-Aspirin] 650 mg PO Q4H PRN 02/27/18 [History] B Complex with Vitamin C [Guerita-Bee with C] 1 each PO BID 02/27/18 [History] Carbamide Peroxide [Ear Drops] 3 drop OT BID 02/27/18 [History] Desitin (Zinc Oxide) [Desitin] 1 appl TP BID 02/27/18 [History] Dextran 70/Hypromellose [Artificial Tears] 1 drop OP BID 02/27/18 [History] Emollient Combination No.108 [Lubriskin] 237 ml TP DAILY 02/27/18 [History] Cholecalciferol (Vitamin D3) [Children's Vitamin D3] 1,000 unit PO DAILY #0 03/02/18 [Rx] Digoxin [Lanoxin] 0.125 mg PO DAILY #30 tablet 03/02/18 [Rx] Doxycycline 100 mg PO BID #10 capsule 03/02/18 [Rx] Lactobacillus [Culturelle] 1 each PO BID #10 cap.sprink 03/02/18 [Rx] Magnesium Oxide [Mag-Ox] 400 mg PO BID #14 tablet 03/02/18 [Rx] Allergies/Adverse Reactions: Allergy/AdvReac Type Severity Reaction Status Date / Time apples Allergy See Uncoded 02/07/15 14:04 Comments environmental allergies Allergy See Uncoded 02/07/15 14:04 Comments Date of admission: 02/28/18 10:00 Primary care physician: Ashley Qureshi - Constitutional Vitals: Temp Pulse Resp BP Pulse Ox 98.5 F 86 20 100/67 96 03/02/18 07:29 03/02/18 07:29 03/02/18 07:29 03/02/18 07:29 03/02/18 07:29 - Patient Status Disposition: Home, Self-Care Condition: Fair - Discharge Instructions Follow Up With: Ashley Qureshi MD [Primary Care Provider] - 1 week Additional Instructions: CBC with differential, BMP, dig level, BNP peptide in 3 days - Diet and Activity Activity: resume usual activities as tolerated - VTE Documentation of Mechanical Device: Graduated compression elastic hosiery
== END 2018-03-02 13:36 | disposition home or self-care (01) | DRG 698 ==
LOC: INPPIK 11:21 → EMEROOPIK 11:21 → INPPIK 13:09
PROVIDERS: ADMIT Internal Medicine; ATTEND Internal Medicine

== ENCOUNTER 2019-12-29 13:51 | Inpatient (IN) ==
[2019-12-29] MEDS ORDERED: Pantoprazole 40 MG VIAL IVP ONE (13:54)
[2019-12-29] MEDS ORDERED: 0.9 % Sodium Chloride 1,000 ML IVC ONE (13:54)
[2019-12-29 14:25] LABS: Bilirubin,Urine Negative (Negative); Blood,Urine Moderate (Negative); Clarity,Urine Turbid (Clear); Color,Urine Yellow (Yellow); Glucose,Urine (UA) Normal (Normal); Ketones,Urine Negative (Negative); Leukocyte Esterase,Urine Large (Negative); Nitrite,Urine Negative (Negative); Protein,Urine 100 mg/dL (Neg-Trace); Specific Gravity,Urine 1.025 (1.010-1.025); Urobilinogen,Urine Normal (Normal)
[2019-12-29 14:38] LABS: Basophils # 0.1 K/mcL (0.0-0.2); Basophils % 0.4 %; Eosinophils % 0.3 %; Hematocrit 40.1 % (37.5-50.1); Hemoglobin 13.6 g/dL (12.9-16.9); Immature Granulocytes % 0.3 % (0-4); Lymphocytes # 0.9 K/mcL (0.6-4.6); Lymphocytes % 5.8 %; Mean Corpuscular HGB Conc 33.9 g/dL (31.6-35.5); Mean Corpuscular Hemoglobin 32.3 pg (28.0-33.3); Mean Corpuscular Volume 95.2 fL (83.0-100.0); Mean Platelet Volume 10.4 fL (9.4-12.4); Monocytes # 1.2 K/mcL (0.0-1.3); Monocytes % 8.4 %; Neutrophils # 12.4 K/mcL (1.6-8.9); Platelet Count 229 K/mcL (140-400); Red Blood Count 4.21 M/mcL (4.19-5.50); Segmented Neutrophils % 84.8 %; White Blood Count 14.6 K/mcL (4.3-11.1)
[2019-12-29 14:50] LABS: Bacteria,Urine Moderate per hpf (None-Few); Squamous Epithelial Cell,Urine Few per hpf (None-Few); WBC,Urine TNTC per hpf (0-3)
[2019-12-29 14:53] LABS: Activated Partial Thrombo Time 27.3 Seconds (26.0-36.0); INR 1.1
[2019-12-29 14:54] LABS: Prothrombin Time 12.6 Seconds (9.4-12.1)
[2019-12-29 14:56] LABS: Alanine Aminotransferase 22 Units/L (7-52); Albumin 3.6 g/dL (3.5-5.7); Albumin/Globulin Ratio 0.9 (1.1-2.2); Alkaline Phosphatase 100 Units/L (34-104); Amylase 35 Units/L (29-103); Aspartate Amino Transferase 21 Units/L (13-39); BUN/Creatinine Ratio 23 (6-26); Bilirubin,Direct 0.1 mg/dL (0.0-0.2); Bilirubin,Indirect 0.3 mg/dL (0.0-1.0); Bilirubin,Total 0.4 mg/dL (0.3-1.0); Blood Urea Nitrogen 28 mg/dL (8-23); Calcium 10.5 mg/dL (8.6-10.3); Carbon Dioxide 28 mEq/L (23-29); Chloride 100 mEq/L (98-107); Globulin 3.9 g/dL (2.4-3.5); Glucose 139 mg/dL (70-105); Lipase 21 Units/L (11-82); Osmolality,Calculated 294 (280-300); Potassium 4.1 mEq/L (3.5-5.1); Sodium 138 mEq/L (136-145); Total Protein 7.5 g/dL (6.4-8.9); eGFR For African Americans > 60 (> 60); eGFR For Non-African Americans 58 (> 60)
[2019-12-29] MEDS ORDERED: Piperacillin/Tazobactam 3.375 GM in 0.9 % Sodium Chloride Mini Bag 100 ML IVPB ONE (14:59)
[2019-12-29] MEDS ORDERED: Ondansetron 4 MG/2 ML VIAL IVP PRN (16:14)
[2019-12-29] MEDS ORDERED: Naloxone 0.4 MG/ML INJ IVP PRN (16:14)
[2019-12-29] MEDS ORDERED: Acetaminophen 325 MG TABLET PO PRN (16:14)
[2019-12-29] MEDS ORDERED: Piperacillin/Tazobactam 3.375 GM in 0.9 % Sodium Chloride Mini Bag 100 ML IVPB SCH ×2 (17:00→18:00)
[2019-12-29] MEDS: Linezolid 600 MG TABLET PO SCH (22:28)
[2019-12-30 07:21] LABS: Hematocrit 35.1 % (37.5-50.1); Hemoglobin 11.8 g/dL (12.9-16.9); Mean Corpuscular HGB Conc 33.6 g/dL (31.6-35.5); Mean Corpuscular Hemoglobin 32.3 pg (28.0-33.3); Mean Corpuscular Volume 96.2 fL (83.0-100.0); Mean Platelet Volume 11.3 fL (9.4-12.4); Platelet Count 122 K/mcL (140-400); Red Blood Count 3.65 M/mcL (4.19-5.50); Red Cell Distribution Width 14.3 % (11.5-14.5); White Blood Count 12.8 K/mcL (4.3-11.1)
[2019-12-30 07:30] LABS: BUN/Creatinine Ratio 23 (6-26); Blood Urea Nitrogen 27 mg/dL (8-23); Calcium 9.7 mg/dL (8.6-10.3); Carbon Dioxide 29 mEq/L (23-29); Chloride 105 mEq/L (98-107); Glucose 94 mg/dL (70-105); Magnesium 1.7 mg/dL (1.6-2.6); Osmolality,Calculated 297 (280-300); Sodium 141 mEq/L (136-145); eGFR For African Americans > 60 (> 60); eGFR For Non-African Americans > 60 (> 60)
[2019-12-30] MEDS: 0.9 % Sodium Chloride 1,000 ML IVC SCH ×3 (09:04→21:45)
[2019-12-30] MEDS: Linezolid 600 MG TABLET PO SCH ×2 (09:05→10:44)
[2019-12-30] MEDS ORDERED: Desitin (Zinc Oxide) 56 GM TUBE TP PRN (09:57)
[2019-12-30] MEDS: Magnesium Oxide 400 MG TABLET PO SCH ×2 (10:44→21:53)
[2019-12-30] MEDS: *HR* Digoxin 0.125 MG TABLET PO SCH (10:44)
[2019-12-30] MEDS: Cyanocobalamin (B-12) 1,000 MCG TABLET PO SCH (10:44)
[2019-12-30] MEDS: Loratadine 10 MG TABLET PO SCH (10:45)
[2019-12-30] MEDS: Cholecalciferol (D-3) 1,000 UNIT (25MCG) TABLET PO SCH (10:45)
[2019-12-30] MEDS: Artificial Tears SOLN 15 ML BOTTLE BOTH EYES SCH (10:46)
[2019-12-30] MEDS ORDERED: Ertapenem 1,000 MG in 0.9 % Sodium Chloride Mini Bag 100 ML IVPB SCH (14:00)
[2019-12-30] MEDS: Nitrofurantoin (BID) 100 MG CAPSULE PO SCH (16:31)
[2019-12-31] MEDS: Artificial Tears SOLN 15 ML BOTTLE BOTH EYES SCH ×3 (01:43→20:11)
[2019-12-31] MEDS: 0.9 % Sodium Chloride 1,000 ML IVC SCH ×5 (01:46→13:53)
[2019-12-31 06:27] LABS: Basophils % 0.3 %; Eosinophils # 0.4 K/mcL (0.0-0.6); Eosinophils % 3.2 %; Hemoglobin 11.2 g/dL (12.9-16.9); Immature Granulocytes % 0.3 % (0-4); Lymphocytes # 2.2 K/mcL (0.6-4.6); Lymphocytes % 19.1 %; Mean Corpuscular HGB Conc 33.9 g/dL (31.6-35.5); Mean Corpuscular Hemoglobin 32.4 pg (28.0-33.3); Mean Corpuscular Volume 95.4 fL (83.0-100.0); Mean Platelet Volume 10.3 fL (9.4-12.4); Monocytes # 1.7 K/mcL (0.0-1.3); Monocytes % 14.4 %; Platelet Count 193 K/mcL (140-400); Red Blood Count 3.46 M/mcL (4.19-5.50); Red Cell Distribution Width 13.9 % (11.5-14.5); Segmented Neutrophils % 62.7 %; White Blood Count 11.7 K/mcL (4.3-11.1)
[2019-12-31 06:57] LABS: Neutrophils # 7.3 K/mcL (1.6-8.9)
[2019-12-31 07:11] LABS: BUN/Creatinine Ratio 18 (6-26); Blood Urea Nitrogen 20 mg/dL (8-23); Calcium 9.4 mg/dL (8.6-10.3); Carbon Dioxide 28 mEq/L (23-29); Chloride 104 mEq/L (98-107); Glucose 84 mg/dL (70-105); Osmolality,Calculated 288 (280-300); Potassium 3.9 mEq/L (3.5-5.1); Sodium 138 mEq/L (136-145); eGFR For African Americans > 60 (> 60); eGFR For Non-African Americans > 60 (> 60)
[2019-12-31] MEDS: Piperacillin/Tazobactam 3.375 GM in 0.9 % Sodium Chloride Mini Bag 100 ML IVPB SCH ×2 (08:18→16:07)
[2019-12-31] MEDS: *HR* Digoxin 0.125 MG TABLET PO SCH (08:20)
[2019-12-31] MEDS: Cholecalciferol (D-3) 1,000 UNIT (25MCG) TABLET PO SCH (08:20)
[2019-12-31] MEDS: Loratadine 10 MG TABLET PO SCH (08:20)
[2019-12-31] MEDS: Nitrofurantoin (BID) 100 MG CAPSULE PO SCH (08:20)
[2019-12-31] MEDS: Cyanocobalamin (B-12) 1,000 MCG TABLET PO SCH (08:20)
[2019-12-31] MEDS: Magnesium Oxide 400 MG TABLET PO SCH ×2 (08:20→20:11)
[2020-01-01] MEDS: Piperacillin/Tazobactam 3.375 GM in 0.9 % Sodium Chloride Mini Bag 100 ML IVPB SCH ×3 (00:31→16:41)
[2020-01-01 06:45] LABS: Basophils # 0.1 K/mcL (0.0-0.2); Basophils % 0.8 %; Eosinophils # 0.7 K/mcL (0.0-0.6); Eosinophils % 6.4 %; Hematocrit 33.4 % (37.5-50.1); Hemoglobin 11.2 g/dL (12.9-16.9); Immature Granulocytes % 0.5 % (0-4); Lymphocytes # 2.1 K/mcL (0.6-4.6); Lymphocytes % 19.9 %; Mean Corpuscular HGB Conc 33.5 g/dL (31.6-35.5); Mean Corpuscular Volume 95.4 fL (83.0-100.0); Monocytes # 1.5 K/mcL (0.0-1.3); Monocytes % 14.7 %; Platelet Count 207 K/mcL (140-400); Red Cell Distribution Width 13.7 % (11.5-14.5); Segmented Neutrophils % 57.7 %; White Blood Count 10.3 K/mcL (4.3-11.1)
[2020-01-01 07:10] LABS: BUN/Creatinine Ratio 17 (6-26); Blood Urea Nitrogen 19 mg/dL (8-23); Calcium 9.4 mg/dL (8.6-10.3); Carbon Dioxide 29 mEq/L (23-29); Chloride 105 mEq/L (98-107); Glucose 87 mg/dL (70-105); Osmolality,Calculated 294 (280-300); Potassium 4.3 mEq/L (3.5-5.1); Sodium 141 mEq/L (136-145); eGFR For African Americans > 60 (> 60); eGFR For Non-African Americans > 60 (> 60)
[2020-01-01] MEDS: 0.9 % Sodium Chloride 1,000 ML IVC SCH (07:51)
[2020-01-01] MEDS: *HR* Digoxin 0.125 MG TABLET PO SCH (07:52)
[2020-01-01] MEDS: Magnesium Oxide 400 MG TABLET PO SCH ×2 (07:52→21:27)
[2020-01-01] MEDS: Cholecalciferol (D-3) 1,000 UNIT (25MCG) TABLET PO SCH (07:52)
[2020-01-01] MEDS: Loratadine 10 MG TABLET PO SCH (07:52)
[2020-01-01] MEDS: Cyanocobalamin (B-12) 1,000 MCG TABLET PO SCH (08:03)
[2020-01-01] MEDS: Artificial Tears SOLN 15 ML BOTTLE BOTH EYES SCH ×2 (08:03→21:26)
[2020-01-02] MEDS: Piperacillin/Tazobactam 3.375 GM in 0.9 % Sodium Chloride Mini Bag 100 ML IVPB SCH ×3 (00:35→17:42)
[2020-01-02 08:23] LABS: Basophils # 0.1 K/mcL (0.0-0.2); Basophils % 0.8 %; Eosinophils # 0.7 K/mcL (0.0-0.6); Eosinophils % 6.8 %; Hematocrit 32.9 % (37.5-50.1); Hemoglobin 11.2 g/dL (12.9-16.9); Immature Granulocytes % 0.7 % (0-4); Lymphocytes # 2.2 K/mcL (0.6-4.6); Lymphocytes % 21.4 %; Mean Corpuscular Hemoglobin 32.4 pg (28.0-33.3); Mean Corpuscular Volume 95.1 fL (83.0-100.0); Mean Platelet Volume 9.9 fL (9.4-12.4); Monocytes # 1.3 K/mcL (0.0-1.3); Monocytes % 12.9 %; Neutrophils # 5.9 K/mcL (1.6-8.9); Platelet Count 221 K/mcL (140-400); Red Blood Count 3.46 M/mcL (4.19-5.50); Red Cell Distribution Width 13.6 % (11.5-14.5); Segmented Neutrophils % 57.4 %; White Blood Count 10.2 K/mcL (4.3-11.1)
[2020-01-02 08:48] LABS: BUN/Creatinine Ratio 19 (6-26); Blood Urea Nitrogen 19 mg/dL (8-23); Calcium 9.7 mg/dL (8.6-10.3); Carbon Dioxide 29 mEq/L (23-29); Chloride 105 mEq/L (98-107); Glucose 82 mg/dL (70-105); Osmolality,Calculated 289 (280-300); Potassium 4.3 mEq/L (3.5-5.1); Sodium 139 mEq/L (136-145); eGFR For African Americans > 60 (> 60); eGFR For Non-African Americans > 60 (> 60)
[2020-01-02] MEDS: Cyanocobalamin (B-12) 1,000 MCG TABLET PO SCH (09:37)
[2020-01-02] MEDS: Magnesium Oxide 400 MG TABLET PO SCH ×2 (09:37→19:49)
[2020-01-02] MEDS: Cholecalciferol (D-3) 1,000 UNIT (25MCG) TABLET PO SCH (09:38)
[2020-01-02] MEDS: Loratadine 10 MG TABLET PO SCH (09:38)
[2020-01-02] MEDS: *HR* Digoxin 0.125 MG TABLET PO SCH (09:38)
[2020-01-02] MEDS: Artificial Tears SOLN 15 ML BOTTLE BOTH EYES SCH ×2 (09:38→19:49)
[2020-01-03] MEDS: Piperacillin/Tazobactam 3.375 GM in 0.9 % Sodium Chloride Mini Bag 100 ML IVPB SCH ×2 (00:50→07:32)
[2020-01-03] MEDS: Magnesium Oxide 400 MG TABLET PO SCH (07:31)
[2020-01-03] MEDS: *HR* Digoxin 0.125 MG TABLET PO SCH (07:31)
[2020-01-03] MEDS: Cyanocobalamin (B-12) 1,000 MCG TABLET PO SCH (07:31)
[2020-01-03] MEDS: Cholecalciferol (D-3) 1,000 UNIT (25MCG) TABLET PO SCH (07:32)
[2020-01-03] MEDS: Loratadine 10 MG TABLET PO SCH (07:32)
[2020-01-03] MEDS: Artificial Tears SOLN 15 ML BOTTLE BOTH EYES SCH (07:40)
[2020-01-03 07:45] LABS: Basophils # 0.1 K/mcL (0.0-0.2); Basophils % 0.9 %; Eosinophils # 0.8 K/mcL (0.0-0.6); Eosinophils % 8.2 %; Hematocrit 34.9 % (37.5-50.1); Hemoglobin 11.7 g/dL (12.9-16.9); Immature Granulocytes % 1.2 % (0-4); Lymphocytes # 2.1 K/mcL (0.6-4.6); Lymphocytes % 21.6 %; Mean Corpuscular HGB Conc 33.5 g/dL (31.6-35.5); Mean Corpuscular Volume 95.4 fL (83.0-100.0); Mean Platelet Volume 9.8 fL (9.4-12.4); Monocytes # 1.3 K/mcL (0.0-1.3); Monocytes % 13.1 %; Neutrophils # 5.4 K/mcL (1.6-8.9); Platelet Count 255 K/mcL (140-400); Red Blood Count 3.66 M/mcL (4.19-5.50); Red Cell Distribution Width 13.6 % (11.5-14.5); White Blood Count 9.8 K/mcL (4.3-11.1)
[2020-01-03 07:48] VITALS: BP 95/51
[2020-01-03 08:03] LABS: BUN/Creatinine Ratio 20 (6-26); Blood Urea Nitrogen 22 mg/dL (8-23); Calcium 9.8 mg/dL (8.6-10.3); Carbon Dioxide 31 mEq/L (23-29); Chloride 102 mEq/L (98-107); Glucose 84 mg/dL (70-105); Osmolality,Calculated 287 (280-300); Potassium 4.3 mEq/L (3.5-5.1); Sodium 137 mEq/L (136-145); eGFR For African Americans > 60 (> 60); eGFR For Non-African Americans > 60 (> 60)
== END 2020-01-03 15:02 | disposition other institution (70) | DRG 699 ==
LOC: EMEROOPIK 13:51 → INPPIK 13:51
PROVIDERS: ADMIT Family Medicine; ATTEND Family Medicine

== ENCOUNTER 2020-01-02 11:53 | Inpatient (IN) ==
[2020-01-03] MEDS ORDERED: OLOPATADINE HCL OP PRN (15:27)
[2020-01-03] MEDS ORDERED: Desitin (Zinc Oxide) 56 GM TUBE TP PRN (15:27)
[2020-01-03] MEDS ORDERED: Carbamide Peroxide 150 DROP/15 ML BOTTLE BOTH EARS PRN (15:27)
[2020-01-03] MEDS ORDERED: Ondansetron ODT 4 MG TAB.RAPDIS SL PRN (15:27)
[2020-01-03] MEDS ORDERED: Mag Hydrox/Al Hydrox/Simeth 30 ML UDC PO PRN (15:27)
[2020-01-03] MEDS ORDERED: Levalbuterol Neb 1.25 MG/3 ML IH PRN (15:27)
[2020-01-03] MEDS ORDERED: Ammonium Lactate 30 APPL/225 GM BOTTLE TP PRN (15:27)
[2020-01-03] MEDS ORDERED: EPINEPHrine 1 MG/ML VIAL IM PRN (15:27)
[2020-01-03] MEDS ORDERED: Acetaminophen 325 MG TABLET PO PRN (15:27)
[2020-01-03] MEDS ORDERED: Ipratropium 1 PUFF INHALER IH PRN (15:27)
[2020-01-03] MEDS ORDERED: Piperacillin/Tazobactam 3.375 GM VIAL IVPB SCH (16:00)
[2020-01-03] MEDS: Piperacillin/Tazobactam 3.375 GM in 0.9 % Sodium Chloride Mini Bag 100 ML IVPB SCH ×2 (16:28→23:47)
[2020-01-03] MEDS: Magnesium Oxide 400 MG TABLET PO SCH (20:37)
[2020-01-03] MEDS: Artificial Tears SOLN 15 ML BOTTLE BOTH EYES SCH (20:38)
[2020-01-03] MEDS ORDERED: BENEPROTEIN PO SCH (21:00)
[2020-01-03] MEDS ORDERED: Vitamin B Complex/Vit C/Vit E 1 EACH TABLET PO SCH (21:00)
[2020-01-04] MEDS: Magnesium Oxide 400 MG TABLET PO SCH ×2 (07:28→19:49)
[2020-01-04] MEDS: Cholecalciferol (D-3) 1,000 UNIT (25MCG) TABLET PO SCH (07:28)
[2020-01-04] MEDS: *HR* Digoxin 0.125 MG TABLET PO SCH (07:28)
[2020-01-04] MEDS: Cyanocobalamin (B-12) 1,000 MCG TABLET PO SCH (07:28)
[2020-01-04] MEDS: Artificial Tears SOLN 15 ML BOTTLE BOTH EYES SCH ×2 (07:29→19:49)
[2020-01-04] MEDS: Piperacillin/Tazobactam 3.375 GM in 0.9 % Sodium Chloride Mini Bag 100 ML IVPB SCH ×3 (07:29→23:59)
[2020-01-04] MEDS ORDERED: Ascorbic Acid 500 MG TABLET PO SCH (07:30)
[2020-01-04] MEDS: Loratadine 10 MG TABLET PO SCH (07:44)
[2020-01-04] MEDS ORDERED: AMOXICILLIN PO SCH (09:00)
[2020-01-04] MEDS ORDERED: LOPERAMIDE HCL 2 MG PO SCH (09:00)
[2020-01-05] MEDS: Cholecalciferol (D-3) 1,000 UNIT (25MCG) TABLET PO SCH (07:39)
[2020-01-05] MEDS: Loratadine 10 MG TABLET PO SCH (07:39)
[2020-01-05] MEDS: Cyanocobalamin (B-12) 1,000 MCG TABLET PO SCH (07:39)
[2020-01-05] MEDS: Piperacillin/Tazobactam 3.375 GM in 0.9 % Sodium Chloride Mini Bag 100 ML IVPB SCH ×2 (07:40→15:18)
[2020-01-05] MEDS: *HR* Digoxin 0.125 MG TABLET PO SCH (07:40)
[2020-01-05] MEDS: Magnesium Oxide 400 MG TABLET PO SCH ×2 (07:40→19:49)
[2020-01-05] MEDS: Artificial Tears SOLN 15 ML BOTTLE BOTH EYES SCH ×2 (07:43→19:49)
[2020-01-06] MEDS: Piperacillin/Tazobactam 3.375 GM in 0.9 % Sodium Chloride Mini Bag 100 ML IVPB SCH ×3 (00:12→16:15)
[2020-01-06] MEDS: Loratadine 10 MG TABLET PO SCH (07:57)
[2020-01-06] MEDS: *HR* Digoxin 0.125 MG TABLET PO SCH (07:57)
[2020-01-06] MEDS: Cholecalciferol (D-3) 1,000 UNIT (25MCG) TABLET PO SCH (07:57)
[2020-01-06] MEDS: Magnesium Oxide 400 MG TABLET PO SCH ×2 (07:57→20:18)
[2020-01-06] MEDS: Cyanocobalamin (B-12) 1,000 MCG TABLET PO SCH (07:57)
[2020-01-06] MEDS: Artificial Tears SOLN 15 ML BOTTLE BOTH EYES SCH ×2 (07:58→20:18)
[2020-01-07] MEDS: Piperacillin/Tazobactam 3.375 GM in 0.9 % Sodium Chloride Mini Bag 100 ML IVPB SCH ×2 (00:47→08:45)
[2020-01-07 07:00] VITALS: BP 103/61
[2020-01-07] MEDS: *HR* Digoxin 0.125 MG TABLET PO SCH (08:44)
[2020-01-07] MEDS: Magnesium Oxide 400 MG TABLET PO SCH (08:44)
[2020-01-07] MEDS: Cyanocobalamin (B-12) 1,000 MCG TABLET PO SCH (08:45)
[2020-01-07] MEDS: Loratadine 10 MG TABLET PO SCH (08:45)
[2020-01-07] MEDS: Cholecalciferol (D-3) 1,000 UNIT (25MCG) TABLET PO SCH (08:45)
[2020-01-07] MEDS: Artificial Tears SOLN 15 ML BOTTLE BOTH EYES SCH (11:34)
== END 2020-01-07 12:25 | disposition home health service (06) | DRG 949 ==
LOC: INPPIK 01-03 15:09
PROVIDERS: ADMIT Family Medicine; ATTEND Family Medicine

== ENCOUNTER 2020-02-12 14:16 | Inpatient (IN) ==
[2020-02-12] MEDS ORDERED: 0.9 % Sodium Chloride 1,000 ML IVC ONE (14:29)
[2020-02-12 15:06] LABS: Basophils # 0.1 K/mcL (0.0-0.2); Basophils % 0.6 %; Eosinophils # 0.5 K/mcL (0.0-0.6); Eosinophils % 4.2 %; Hematocrit 38.7 % (37.5-50.1); Hemoglobin 12.7 g/dL (12.9-16.9); Immature Granulocytes % 0.3 % (0-4); Lymphocytes # 2.6 K/mcL (0.6-4.6); Lymphocytes % 24.7 %; Mean Corpuscular HGB Conc 32.8 g/dL (31.6-35.5); Mean Corpuscular Hemoglobin 31.8 pg (28.0-33.3); Mean Corpuscular Volume 96.8 fL (83.0-100.0); Mean Platelet Volume 10.1 fL (9.4-12.4); Monocytes # 1.2 K/mcL (0.0-1.3); Monocytes % 11.1 %; Neutrophils # 6.3 K/mcL (1.6-8.9); Platelet Count 216 K/mcL (140-400); Red Cell Distribution Width 13.3 % (11.5-14.5); Segmented Neutrophils % 59.1 %; White Blood Count 10.6 K/mcL (4.3-11.1)
[2020-02-12] MEDS: Piperacillin/Tazobactam 3.375 GM in 0.9 % Sodium Chloride Mini Bag 100 ML IVPB ONE (15:12)
[2020-02-12 15:29] LABS: BUN/Creatinine Ratio 16 (6-26); Blood Urea Nitrogen 15 mg/dL (8-23); Calcium 10.3 mg/dL (8.6-10.3); Carbon Dioxide 29 mEq/L (23-29); Chloride 102 mEq/L (98-107); Glucose 89 mg/dL (70-105); Osmolality,Calculated 288 (280-300); Potassium 4.3 mEq/L (3.5-5.1); Sodium 139 mEq/L (136-145); eGFR For African Americans > 60 (> 60); eGFR For Non-African Americans > 60 (> 60)
[2020-02-12] MEDS: 0.9 % Sodium Chloride 1,000 ML IVC SCH (16:24)
[2020-02-12] MEDS ORDERED: [UNRECOGNIZED DRUG - OTHER] OP PRN (16:42)
[2020-02-12] MEDS ORDERED: Acetaminophen 325 MG TABLET PO PRN (16:55)
[2020-02-12] MEDS ORDERED: Ondansetron 4 MG/2 ML VIAL IVP PRN (16:55)
[2020-02-12] MEDS ORDERED: Naloxone 0.4 MG/ML INJ IVP PRN (16:55)
[2020-02-12] MEDS: Magnesium Oxide 400 MG TABLET PO SCH (19:41)
[2020-02-12] MEDS: Artificial Tears SOLN 15 ML BOTTLE OP SCH (19:41)
[2020-02-12] MEDS: polyethylene glycoL 3350 17 GM POWD.PACK PO SCH (19:45)
[2020-02-12] MEDS: Piperacillin/Tazobactam 3.375 GM in 0.9 % Sodium Chloride Mini Bag 100 ML IVPB SCH (21:41)
[2020-02-13] MEDS: 0.9 % Sodium Chloride 1,000 ML IVC SCH ×3 (00:30→18:05)
[2020-02-13] MEDS: Piperacillin/Tazobactam 3.375 GM in 0.9 % Sodium Chloride Mini Bag 100 ML IVPB SCH ×3 (05:36→21:58)
[2020-02-13] MEDS: polyethylene glycoL 3350 17 GM POWD.PACK PO SCH ×2 (09:07→21:58)
[2020-02-13] MEDS: Artificial Tears SOLN 15 ML BOTTLE OP SCH ×2 (09:30→21:57)
[2020-02-13] MEDS: Magnesium Oxide 400 MG TABLET PO SCH ×2 (09:31→21:57)
[2020-02-13] MEDS: Loratadine 10 MG TABLET PO SCH (09:31)
[2020-02-13] MEDS: *HR* Digoxin 0.125 MG TABLET PO SCH (09:31)
[2020-02-13 10:09] LABS: Basophils # 0.1 K/mcL (0.0-0.2); Basophils % 0.9 %; Eosinophils # 0.6 K/mcL (0.0-0.6); Eosinophils % 7.4 %; Hematocrit 34.3 % (37.5-50.1); Hemoglobin 11.2 g/dL (12.9-16.9); Immature Granulocytes % 0.4 % (0-4); Lymphocytes # 1.7 K/mcL (0.6-4.6); Lymphocytes % 21.2 %; Mean Corpuscular HGB Conc 32.7 g/dL (31.6-35.5); Mean Corpuscular Hemoglobin 31.9 pg (28.0-33.3); Mean Corpuscular Volume 97.7 fL (83.0-100.0); Mean Platelet Volume 10.5 fL (9.4-12.4); Monocytes % 11.9 %; Neutrophils # 4.7 K/mcL (1.6-8.9); Platelet Count 202 K/mcL (140-400); Red Blood Count 3.51 M/mcL (4.19-5.50); Red Cell Distribution Width 13.4 % (11.5-14.5); Segmented Neutrophils % 58.2 %; White Blood Count 8.1 K/mcL (4.3-11.1)
[2020-02-13 10:26] LABS: BUN/Creatinine Ratio 14 (6-26); Blood Urea Nitrogen 13 mg/dL (8-23); Calcium 9.4 mg/dL (8.6-10.3); Carbon Dioxide 28 mEq/L (23-29); Chloride 108 mEq/L (98-107); Glucose 78 mg/dL (70-105); Osmolality,Calculated 295 (280-300); Potassium 4.4 mEq/L (3.5-5.1); Sodium 143 mEq/L (136-145); eGFR For African Americans > 60 (> 60); eGFR For Non-African Americans > 60 (> 60)
[2020-02-14] MEDS: 0.9 % Sodium Chloride 1,000 ML IVC SCH ×2 (02:17→14:39)
[2020-02-14] MEDS: Piperacillin/Tazobactam 3.375 GM in 0.9 % Sodium Chloride Mini Bag 100 ML IVPB SCH ×3 (05:39→22:29)
[2020-02-14 07:34] LABS: Basophils # 0.1 K/mcL (0.0-0.2); Basophils % 0.8 %; Eosinophils # 0.7 K/mcL (0.0-0.6); Eosinophils % 8.4 %; Hematocrit 32.2 % (37.5-50.1); Hemoglobin 10.7 g/dL (12.9-16.9); Immature Granulocytes % 0.2 % (0-4); Lymphocytes # 2.1 K/mcL (0.6-4.6); Lymphocytes % 24.9 %; Mean Corpuscular HGB Conc 33.2 g/dL (31.6-35.5); Mean Corpuscular Hemoglobin 32.1 pg (28.0-33.3); Mean Corpuscular Volume 96.7 fL (83.0-100.0); Mean Platelet Volume 10.1 fL (9.4-12.4); Monocytes # 1.2 K/mcL (0.0-1.3); Monocytes % 14.3 %; Neutrophils # 4.3 K/mcL (1.6-8.9); Platelet Count 198 K/mcL (140-400); Red Blood Count 3.33 M/mcL (4.19-5.50); Red Cell Distribution Width 13.5 % (11.5-14.5); Segmented Neutrophils % 51.4 %; White Blood Count 8.4 K/mcL (4.3-11.1)
[2020-02-14 07:50] LABS: BUN/Creatinine Ratio 13 (6-26); Blood Urea Nitrogen 12 mg/dL (8-23); Calcium 8.8 mg/dL (8.6-10.3); Carbon Dioxide 29 mEq/L (23-29); Chloride 111 mEq/L (98-107); Glucose 73 mg/dL (70-105); Osmolality,Calculated 292 (280-300); Sodium 142 mEq/L (136-145); eGFR For African Americans > 60 (> 60); eGFR For Non-African Americans > 60 (> 60)
[2020-02-14] MEDS: *HR* Digoxin 0.125 MG TABLET PO SCH (08:21)
[2020-02-14] MEDS: Artificial Tears SOLN 15 ML BOTTLE OP SCH ×2 (08:21→20:17)
[2020-02-14] MEDS: Loratadine 10 MG TABLET PO SCH (08:21)
[2020-02-14] MEDS: Magnesium Oxide 400 MG TABLET PO SCH ×2 (08:21→20:17)
[2020-02-14] MEDS: polyethylene glycoL 3350 17 GM POWD.PACK PO SCH ×2 (08:21→20:16)
[2020-02-14] MEDS: Piperacillin/Tazobactam 3.375 GM in 0.9 % Sodium Chloride Mini Bag 100 ML IVPB ONE (13:36)
[2020-02-15 05:25] LABS: Basophils # 0.1 K/mcL (0.0-0.2); Basophils % 0.9 %; Eosinophils # 0.8 K/mcL (0.0-0.6); Eosinophils % 9.2 %; Hematocrit 32.7 % (37.5-50.1); Hemoglobin 10.9 g/dL (12.9-16.9); Immature Granulocytes % 0.2 % (0-4); Lymphocytes # 2.1 K/mcL (0.6-4.6); Lymphocytes % 24.9 %; Mean Corpuscular HGB Conc 33.3 g/dL (31.6-35.5); Mean Corpuscular Volume 95.9 fL (83.0-100.0); Mean Platelet Volume 10.2 fL (9.4-12.4); Monocytes # 1.2 K/mcL (0.0-1.3); Monocytes % 14.4 %; Neutrophils # 4.3 K/mcL (1.6-8.9); Platelet Count 202 K/mcL (140-400); Red Blood Count 3.41 M/mcL (4.19-5.50); Red Cell Distribution Width 13.2 % (11.5-14.5); Segmented Neutrophils % 50.4 %; White Blood Count 8.6 K/mcL (4.3-11.1)
[2020-02-15] MEDS: Piperacillin/Tazobactam 3.375 GM in 0.9 % Sodium Chloride Mini Bag 100 ML IVPB SCH ×3 (06:00→22:27)
[2020-02-15 06:55] LABS: BUN/Creatinine Ratio 9 (6-26); Blood Urea Nitrogen 9 mg/dL (8-23); Carbon Dioxide 28 mEq/L (23-29); Chloride 106 mEq/L (98-107); Glucose 89 mg/dL (70-105); Osmolality,Calculated 286 (280-300); Potassium 3.6 mEq/L (3.5-5.1); Sodium 139 mEq/L (136-145); eGFR For African Americans > 60 (> 60); eGFR For Non-African Americans > 60 (> 60)
[2020-02-15] MEDS: Loratadine 10 MG TABLET PO SCH (09:22)
[2020-02-15] MEDS: Magnesium Oxide 400 MG TABLET PO SCH ×2 (09:22→20:16)
[2020-02-15] MEDS: *HR* Digoxin 0.125 MG TABLET PO SCH (09:22)
[2020-02-15] MEDS: polyethylene glycoL 3350 17 GM POWD.PACK PO SCH ×2 (09:39→20:14)
[2020-02-15] MEDS: Artificial Tears SOLN 15 ML BOTTLE OP SCH ×2 (09:40→20:14)
[2020-02-16] MEDS: Piperacillin/Tazobactam 3.375 GM in 0.9 % Sodium Chloride Mini Bag 100 ML IVPB SCH ×3 (05:58→22:20)
[2020-02-16 07:30] LABS: Basophils # 0.1 K/mcL (0.0-0.2); Basophils % 0.8 %; Eosinophils # 0.7 K/mcL (0.0-0.6); Eosinophils % 8.7 %; Hematocrit 35.6 % (37.5-50.1); Hemoglobin 11.9 g/dL (12.9-16.9); Immature Granulocytes % 0.2 % (0-4); Lymphocytes # 2.4 K/mcL (0.6-4.6); Lymphocytes % 27.9 %; Mean Corpuscular HGB Conc 33.4 g/dL (31.6-35.5); Mean Corpuscular Hemoglobin 31.8 pg (28.0-33.3); Mean Corpuscular Volume 95.2 fL (83.0-100.0); Mean Platelet Volume 9.9 fL (9.4-12.4); Monocytes # 1.1 K/mcL (0.0-1.3); Neutrophils # 4.2 K/mcL (1.6-8.9); Platelet Count 229 K/mcL (140-400); Red Blood Count 3.74 M/mcL (4.19-5.50); Red Cell Distribution Width 13.2 % (11.5-14.5); Segmented Neutrophils % 49.4 %; White Blood Count 8.5 K/mcL (4.3-11.1)
[2020-02-16 07:49] LABS: BUN/Creatinine Ratio 11 (6-26); Blood Urea Nitrogen 11 mg/dL (8-23); Calcium 9.4 mg/dL (8.6-10.3); Carbon Dioxide 30 mEq/L (23-29); Chloride 103 mEq/L (98-107); Glucose 78 mg/dL (70-105); Osmolality,Calculated 282 (280-300); Sodium 137 mEq/L (136-145); eGFR For African Americans > 60 (> 60); eGFR For Non-African Americans > 60 (> 60)
[2020-02-16] MEDS: Magnesium Oxide 400 MG TABLET PO SCH ×2 (09:24→20:58)
[2020-02-16] MEDS: Artificial Tears SOLN 15 ML BOTTLE OP SCH ×2 (09:25→21:05)
[2020-02-16] MEDS: Loratadine 10 MG TABLET PO SCH (09:25)
[2020-02-16] MEDS: *HR* Digoxin 0.125 MG TABLET PO SCH (09:25)
[2020-02-16] MEDS: polyethylene glycoL 3350 17 GM POWD.PACK PO SCH ×2 (09:27→21:13)
[2020-02-17] MEDS: Piperacillin/Tazobactam 3.375 GM in 0.9 % Sodium Chloride Mini Bag 100 ML IVPB SCH ×3 (05:44→20:04)
[2020-02-17 07:17] LABS: Basophils # 0.1 K/mcL (0.0-0.2); Basophils % 0.8 %; Eosinophils # 0.7 K/mcL (0.0-0.6); Eosinophils % 6.3 %; Hematocrit 39.2 % (37.5-50.1); Hemoglobin 12.9 g/dL (12.9-16.9); Immature Granulocytes % 0.4 % (0-4); Lymphocytes # 2.6 K/mcL (0.6-4.6); Lymphocytes % 24.7 %; Mean Corpuscular HGB Conc 32.9 g/dL (31.6-35.5); Mean Corpuscular Hemoglobin 31.8 pg (28.0-33.3); Mean Corpuscular Volume 96.6 fL (83.0-100.0); Mean Platelet Volume 10.1 fL (9.4-12.4); Monocytes # 1.2 K/mcL (0.0-1.3); Monocytes % 11.7 %; Neutrophils # 5.9 K/mcL (1.6-8.9); Platelet Count 234 K/mcL (140-400); Red Blood Count 4.06 M/mcL (4.19-5.50); Red Cell Distribution Width 13.6 % (11.5-14.5); Segmented Neutrophils % 56.1 %; White Blood Count 10.5 K/mcL (4.3-11.1)
[2020-02-17 07:21] LABS: BUN/Creatinine Ratio 14 (6-26); Blood Urea Nitrogen 14 mg/dL (8-23); Calcium 9.8 mg/dL (8.6-10.3); Carbon Dioxide 31 mEq/L (23-29); Chloride 104 mEq/L (98-107); Glucose 75 mg/dL (70-105); Osmolality,Calculated 291 (280-300); Potassium 4.2 mEq/L (3.5-5.1); Sodium 141 mEq/L (136-145); eGFR For African Americans > 60 (> 60); eGFR For Non-African Americans > 60 (> 60)
[2020-02-17] MEDS: Magnesium Oxide 400 MG TABLET PO SCH ×2 (08:03→19:57)
[2020-02-17] MEDS: *HR* Digoxin 0.125 MG TABLET PO SCH (08:03)
[2020-02-17] MEDS: Loratadine 10 MG TABLET PO SCH (08:03)
[2020-02-17] MEDS: Artificial Tears SOLN 15 ML BOTTLE OP SCH ×2 (08:03→21:45)
[2020-02-17] MEDS: polyethylene glycoL 3350 17 GM POWD.PACK PO SCH ×2 (12:47→20:05)
[2020-02-18] MEDS: Piperacillin/Tazobactam 3.375 GM in 0.9 % Sodium Chloride Mini Bag 100 ML IVPB SCH ×3 (05:39→23:02)
[2020-02-18] MEDS: Artificial Tears SOLN 15 ML BOTTLE OP SCH ×2 (07:39→20:02)
[2020-02-18] MEDS: *HR* Digoxin 0.125 MG TABLET PO SCH (07:39)
[2020-02-18] MEDS: Magnesium Oxide 400 MG TABLET PO SCH ×2 (07:39→20:02)
[2020-02-18] MEDS: Loratadine 10 MG TABLET PO SCH (07:39)
[2020-02-18] MEDS: polyethylene glycoL 3350 17 GM POWD.PACK PO SCH ×2 (07:47→20:03)
[2020-02-19] MEDS: Piperacillin/Tazobactam 3.375 GM in 0.9 % Sodium Chloride Mini Bag 100 ML IVPB SCH (06:06)
[2020-02-19 07:22] VITALS: BP 145/73
[2020-02-19] MEDS: Magnesium Oxide 400 MG TABLET PO SCH (09:43)
[2020-02-19] MEDS: *HR* Digoxin 0.125 MG TABLET PO SCH (09:43)
[2020-02-19] MEDS: Loratadine 10 MG TABLET PO SCH (09:43)
[2020-02-19] MEDS: Artificial Tears SOLN 15 ML BOTTLE OP SCH (09:43)
[2020-02-19] MEDS: polyethylene glycoL 3350 17 GM POWD.PACK PO SCH (09:46)
== END 2020-02-19 11:16 | disposition other institution (70) | DRG 699 ==
LOC: INPPIK 14:16 → EMEROOPIK 14:16 → INPPIK 18:40
PROVIDERS: ADMIT Family Medicine; ATTEND Family Medicine

== ENCOUNTER 2020-06-06 14:47 | Inpatient (IN) ==
[2020-06-06] MEDS ORDERED: 0.9 % Sodium Chloride 1,000 ML IVC ONE (15:17)
[2020-06-06 15:40] LABS: Bilirubin,Urine Negative (Negative); Blood,Urine Small (Negative); Clarity,Urine Slightly Cloudy (Clear); Color,Urine Yellow (Yellow); Glucose,Urine (UA) Normal (Normal); Ketones,Urine Negative (Negative); Leukocyte Esterase,Urine Large (Negative); Nitrite,Urine Positive (Negative); Protein,Urine 30 mg/dL (Neg-Trace); Urobilinogen,Urine Normal (Normal)
[2020-06-06 15:47] LABS: Basophils # 0.1 K/mcL (0.0-0.2); Basophils % 0.4 %; Eosinophils # 0.1 K/mcL (0.0-0.6); Eosinophils % 0.7 %; Hematocrit 41.9 % (37.5-50.1); Hemoglobin 14.1 g/dL (12.9-16.9); Immature Granulocytes % 0.4 % (0-4); Lymphocytes # 1.5 K/mcL (0.6-4.6); Lymphocytes % 8.9 %; Mean Corpuscular HGB Conc 33.7 g/dL (31.6-35.5); Mean Corpuscular Volume 95.2 fL (83.0-100.0); Mean Platelet Volume 10.4 fL (9.4-12.4); Monocytes # 1.5 K/mcL (0.0-1.3); Monocytes % 8.8 %; Platelet Count 208 K/mcL (140-400); Red Cell Distribution Width 13.1 % (11.5-14.5); Segmented Neutrophils % 80.8 %; White Blood Count 16.5 K/mcL (4.3-11.1)
[2020-06-06 15:49] LABS: Bacteria,Urine Many per hpf (None-Few); WBC,Urine 50-100 per hpf (0-3)
[2020-06-06 15:54] LABS: Neutrophils # 13.3 K/mcL (1.6-8.9)
[2020-06-06 16:05] LABS: Alanine Aminotransferase 22 Units/L (7-52); Albumin 3.8 g/dL (3.5-5.7); Alkaline Phosphatase 103 Units/L (34-104); Aspartate Amino Transferase 22 Units/L (13-39); BUN/Creatinine Ratio 21 (6-26); Bilirubin,Direct 0.1 mg/dL (0.0-0.2); Bilirubin,Indirect 0.3 mg/dL (0.0-1.0); Bilirubin,Total 0.4 mg/dL (0.3-1.0); Blood Urea Nitrogen 24 mg/dL (8-23); Calcium 10.4 mg/dL (8.6-10.3); Carbon Dioxide 30 mEq/L (23-29); Chloride 100 mEq/L (98-107); Globulin 3.7 g/dL (2.4-3.5); Glucose 119 mg/dL (70-105); Lipase 39 Units/L (11-82); Osmolality,Calculated 291 (280-300); Potassium 3.9 mEq/L (3.5-5.1); Sodium 138 mEq/L (136-145); Total Protein 7.5 g/dL (6.4-8.9); eGFR For African Americans > 60 (> 60); eGFR For Non-African Americans > 60 (> 60)
[2020-06-06] MEDS ORDERED: Piperacillin/Tazobactam 4.5 GM in Water for inj. (sterile) 20 ML IVP ONE (16:30)
[2020-06-06] MEDS ORDERED: Acetaminophen 325 MG TABLET PO PRN (17:56)
[2020-06-06] MEDS ORDERED: Ondansetron 4 MG/2 ML VIAL IVP PRN (17:56)
[2020-06-06] MEDS ORDERED: Naloxone 0.4 MG/ML INJ IVP PRN (17:56)
[2020-06-06] MEDS ORDERED: Desitin (Zinc Oxide) 56 GM TUBE TP PRN (17:57)
[2020-06-06] MEDS ORDERED: OLOPATADINE HCL OP PRN (17:57)
[2020-06-06] MEDS ORDERED: Bisacodyl 10 MG RECTAL SUPPOSITORY RC ONE (18:34)
[2020-06-06] MEDS: 0.9 % Sodium Chloride 1,000 ML IVC SCH (19:53)
[2020-06-06] MEDS: polyethylene glycoL 3350 17 GM POWD.PACK PO SCH (19:53)
[2020-06-06] MEDS: Artificial Tears SOLN 15 ML BOTTLE BOTH EYES SCH (19:54)
[2020-06-06] MEDS: Vitamin B Complex/Vit C/Vit E 1 EACH TABLET PO SCH (19:55)
[2020-06-06] MEDS: Magnesium Oxide 400 MG TABLET PO SCH (19:55)
[2020-06-06] MEDS ORDERED: BENEPROTEIN PO SCH (21:00)
[2020-06-06] MEDS: Piperacillin/Tazobactam 3.375 GM in 0.9 % Sodium Chloride Mini Bag 100 ML IVPB SCH (23:59)
[2020-06-07] MEDS: *HR* Enoxaparin 40 MG/0.4 ML SYRINGE SQ SCH (05:56)
[2020-06-07] MEDS: 0.9 % Sodium Chloride 1,000 ML IVC SCH (07:03)
[2020-06-07 07:05] LABS: Basophils # 0.1 K/mcL (0.0-0.2); Basophils % 0.5 %; Eosinophils # 0.4 K/mcL (0.0-0.6); Eosinophils % 3.6 %; Hematocrit 34.1 % (37.5-50.1); Hemoglobin 11.6 g/dL (12.9-16.9); Immature Granulocytes % 0.4 % (0-4); Lymphocytes # 1.6 K/mcL (0.6-4.6); Mean Corpuscular Hemoglobin 32.9 pg (28.0-33.3); Mean Corpuscular Volume 96.6 fL (83.0-100.0); Mean Platelet Volume 10.5 fL (9.4-12.4); Monocytes # 1.4 K/mcL (0.0-1.3); Neutrophils # 7.1 K/mcL (1.6-8.9); Platelet Count 168 K/mcL (140-400); Red Blood Count 3.53 M/mcL (4.19-5.50); Red Cell Distribution Width 13.5 % (11.5-14.5); Segmented Neutrophils % 67.5 %; White Blood Count 10.5 K/mcL (4.3-11.1)
[2020-06-07 07:18] LABS: BUN/Creatinine Ratio 19 (6-26); Blood Urea Nitrogen 22 mg/dL (8-23); Calcium 9.1 mg/dL (8.6-10.3); Carbon Dioxide 29 mEq/L (23-29); Chloride 104 mEq/L (98-107); Glucose 109 mg/dL (70-105); Osmolality,Calculated 290 (280-300); Sodium 138 mEq/L (136-145); eGFR For African Americans > 60 (> 60); eGFR For Non-African Americans > 60 (> 60)
[2020-06-07] MEDS: Piperacillin/Tazobactam 3.375 GM in 0.9 % Sodium Chloride Mini Bag 100 ML IVPB SCH ×2 (09:17→16:09)
[2020-06-07] MEDS: polyethylene glycoL 3350 17 GM POWD.PACK PO SCH ×2 (09:20→19:43)
[2020-06-07] MEDS: Magnesium Oxide 400 MG TABLET PO SCH ×2 (09:21→19:42)
[2020-06-07] MEDS: *HR* Digoxin 0.125 MG TABLET PO SCH (09:21)
[2020-06-07] MEDS: Cholecalciferol (D-3) 1,000 UNIT (25MCG) TABLET PO SCH (09:21)
[2020-06-07] MEDS: Cyanocobalamin (B-12) 1,000 MCG TABLET PO SCH (09:21)
[2020-06-07] MEDS: Loratadine 10 MG TABLET PO SCH (09:22)
[2020-06-07] MEDS: Artificial Tears SOLN 15 ML BOTTLE BOTH EYES SCH ×2 (09:22→20:01)
[2020-06-07] MEDS: Ascorbic Acid 500 MG TABLET PO SCH (09:22)
[2020-06-07] MEDS: Vitamin B Complex/Vit C/Vit E 1 EACH TABLET PO SCH ×2 (09:22→19:42)
[2020-06-08] MEDS: Piperacillin/Tazobactam 3.375 GM in 0.9 % Sodium Chloride Mini Bag 100 ML IVPB SCH ×4 (00:20→23:41)
[2020-06-08] MEDS: *HR* Enoxaparin 40 MG/0.4 ML SYRINGE SQ SCH (05:32)
[2020-06-08 06:29] LABS: Basophils # 0.1 K/mcL (0.0-0.2); Basophils % 0.9 %; Eosinophils # 0.6 K/mcL (0.0-0.6); Eosinophils % 6.7 %; Hematocrit 34.2 % (37.5-50.1); Hemoglobin 11.5 g/dL (12.9-16.9); Immature Granulocytes % 0.2 % (0-4); Lymphocytes # 1.7 K/mcL (0.6-4.6); Lymphocytes % 18.7 %; Mean Corpuscular HGB Conc 33.6 g/dL (31.6-35.5); Mean Corpuscular Hemoglobin 32.1 pg (28.0-33.3); Mean Corpuscular Volume 95.5 fL (83.0-100.0); Mean Platelet Volume 10.4 fL (9.4-12.4); Monocytes # 1.2 K/mcL (0.0-1.3); Monocytes % 13.2 %; Neutrophils # 5.5 K/mcL (1.6-8.9); Platelet Count 175 K/mcL (140-400); Red Blood Count 3.58 M/mcL (4.19-5.50); Red Cell Distribution Width 13.3 % (11.5-14.5); Segmented Neutrophils % 60.3 %; White Blood Count 9.1 K/mcL (4.3-11.1)
[2020-06-08 06:46] LABS: BUN/Creatinine Ratio 12 (6-26); Blood Urea Nitrogen 14 mg/dL (8-23); Calcium 9.2 mg/dL (8.6-10.3); Carbon Dioxide 28 mEq/L (23-29); Chloride 108 mEq/L (98-107); Glucose 87 mg/dL (70-105); Osmolality,Calculated 294 (280-300); Potassium 3.9 mEq/L (3.5-5.1); Sodium 142 mEq/L (136-145); eGFR For African Americans > 60 (> 60); eGFR For Non-African Americans > 60 (> 60)
[2020-06-08] MEDS: Cholecalciferol (D-3) 1,000 UNIT (25MCG) TABLET PO SCH (08:57)
[2020-06-08] MEDS: Cyanocobalamin (B-12) 1,000 MCG TABLET PO SCH (08:57)
[2020-06-08] MEDS: Ascorbic Acid 500 MG TABLET PO SCH (08:57)
[2020-06-08] MEDS: Loratadine 10 MG TABLET PO SCH (08:57)
[2020-06-08] MEDS: polyethylene glycoL 3350 17 GM POWD.PACK PO SCH ×3 (08:57→20:10)
[2020-06-08] MEDS: Magnesium Oxide 400 MG TABLET PO SCH ×2 (08:58→20:10)
[2020-06-08] MEDS: *HR* Digoxin 0.125 MG TABLET PO SCH (08:58)
[2020-06-08] MEDS: Vitamin B Complex/Vit C/Vit E 1 EACH TABLET PO SCH ×2 (08:59→20:10)
[2020-06-08] MEDS: Artificial Tears SOLN 15 ML BOTTLE BOTH EYES SCH ×3 (09:04→20:09)
[2020-06-08] MEDS: Furosemide 20 MG TABLET PO SCH (09:05)
[2020-06-09] MEDS: *HR* Enoxaparin 40 MG/0.4 ML SYRINGE SQ SCH (05:49)
[2020-06-09] MEDS: Cholecalciferol (D-3) 1,000 UNIT (25MCG) TABLET PO SCH (09:06)
[2020-06-09] MEDS: Cyanocobalamin (B-12) 1,000 MCG TABLET PO SCH (09:06)
[2020-06-09] MEDS: Loratadine 10 MG TABLET PO SCH (09:07)
[2020-06-09] MEDS: Vitamin B Complex/Vit C/Vit E 1 EACH TABLET PO SCH ×2 (09:07→19:38)
[2020-06-09] MEDS: polyethylene glycoL 3350 17 GM POWD.PACK PO SCH ×2 (09:07→19:38)
[2020-06-09] MEDS: *HR* Digoxin 0.125 MG TABLET PO SCH (09:07)
[2020-06-09] MEDS: Artificial Tears SOLN 15 ML BOTTLE BOTH EYES SCH ×2 (09:07→19:36)
[2020-06-09] MEDS: Furosemide 20 MG TABLET PO SCH (09:07)
[2020-06-09] MEDS: Ascorbic Acid 500 MG TABLET PO SCH (09:08)
[2020-06-09] MEDS: Magnesium Oxide 400 MG TABLET PO SCH ×2 (09:08→19:38)
[2020-06-09] MEDS: Piperacillin/Tazobactam 3.375 GM in 0.9 % Sodium Chloride Mini Bag 100 ML IVPB SCH ×3 (11:08→22:45)
[2020-06-10] MEDS: Piperacillin/Tazobactam 3.375 GM in 0.9 % Sodium Chloride Mini Bag 100 ML IVPB SCH ×2 (05:07→14:19)
[2020-06-10] MEDS: *HR* Enoxaparin 40 MG/0.4 ML SYRINGE SQ SCH (05:36)
[2020-06-10 07:21] VITALS: BP 103/49
[2020-06-10] MEDS: Cyanocobalamin (B-12) 1,000 MCG TABLET PO SCH (08:21)
[2020-06-10] MEDS: Ascorbic Acid 500 MG TABLET PO SCH (08:22)
[2020-06-10] MEDS: *HR* Digoxin 0.125 MG TABLET PO SCH (08:22)
[2020-06-10] MEDS: Furosemide 20 MG TABLET PO SCH (08:22)
[2020-06-10] MEDS: Loratadine 10 MG TABLET PO SCH (08:22)
[2020-06-10] MEDS: Magnesium Oxide 400 MG TABLET PO SCH (08:22)
[2020-06-10] MEDS: polyethylene glycoL 3350 17 GM POWD.PACK PO SCH (08:22)
[2020-06-10] MEDS: Cholecalciferol (D-3) 1,000 UNIT (25MCG) TABLET PO SCH (08:22)
[2020-06-10] MEDS: Vitamin B Complex/Vit C/Vit E 1 EACH TABLET PO SCH (08:23)
[2020-06-10] MEDS: Artificial Tears SOLN 15 ML BOTTLE BOTH EYES SCH (08:23)
== END 2020-06-10 18:07 | disposition other institution (70) | DRG 699 ==
LOC: INPPIK 14:47 → EMEROOPIK 14:47 → INPPIK 17:22
PROVIDERS: ADMIT Family Medicine; ATTEND Family Medicine

== ENCOUNTER 2020-06-10 13:36 | Inpatient (IN) ==
[2020-06-10] MEDS ORDERED: NON-FORMULARY MEDICATION 1 EACH EACH (Albuterol Sulfate [Proair Respiclick] 90 MCG Aer.Pow IH PRN (15:43)
[2020-06-10] MEDS ORDERED: Ipratropium 1 PUFF INHALER IH PRN (15:43)
[2020-06-10] MEDS ORDERED: OLOPATADINE HCL OP PRN (15:43)
[2020-06-10] MEDS ORDERED: Acetaminophen 325 MG TABLET PO PRN (15:43)
[2020-06-10] MEDS ORDERED: Desitin (Zinc Oxide) 56 GM TUBE TP PRN (15:43)
[2020-06-10] MEDS ORDERED: Ondansetron ODT 4 MG TAB.RAPDIS SL PRN (15:43)
[2020-06-10] MEDS ORDERED: Levalbuterol Neb 1.25 MG/3 ML IH PRN (15:43)
[2020-06-10] MEDS ORDERED: [UNRECOGNIZED DRUG - OTHER] TP PRN (15:43)
[2020-06-10] MEDS ORDERED: Mag Hydrox/Al Hydrox/Simeth 30 ML UDC PO PRN (18:57)
[2020-06-10] MEDS ORDERED: Vancomycin 750 MG VIAL IVPB SCH (20:00)
[2020-06-10] MEDS: Artificial Tears SOLN 15 ML BOTTLE BOTH EYES SCH (20:20)
[2020-06-10] MEDS: Magnesium Oxide 400 MG TABLET PO SCH (20:20)
[2020-06-10] MEDS: Vitamin B Complex/Vit C/Vit E 1 EACH TABLET PO SCH (20:21)
[2020-06-10] MEDS: polyethylene glycoL 3350 17 GM POWD.PACK PO SCH (20:21)
[2020-06-10] MEDS: Piperacillin/Tazobactam 3.375 GM in 0.9 % Sodium Chloride Mini Bag 100 ML IVPB SCH (21:52)
[2020-06-10] MEDS ORDERED: Piperacillin/Tazobactam 3.375 GM VIAL IVPB SCH (22:00)
[2020-06-11] MEDS: *HR* Enoxaparin 40 MG/0.4 ML SYRINGE SQ SCH (05:35)
[2020-06-11] MEDS: Piperacillin/Tazobactam 3.375 GM in 0.9 % Sodium Chloride Mini Bag 100 ML IVPB SCH ×3 (05:36→21:55)
[2020-06-11 07:35] LABS: Basophils # 0.1 K/mcL (0.0-0.2); Basophils % 0.8 %; Eosinophils % 9.3 %; Hematocrit 36.7 % (37.5-50.1); Hemoglobin 12.4 g/dL (12.9-16.9); Immature Granulocytes % 0.5 % (0-4); Lymphocytes # 2.6 K/mcL (0.6-4.6); Lymphocytes % 24.6 %; Mean Corpuscular HGB Conc 33.8 g/dL (31.6-35.5); Mean Corpuscular Hemoglobin 32.2 pg (28.0-33.3); Mean Corpuscular Volume 95.3 fL (83.0-100.0); Mean Platelet Volume 10.2 fL (9.4-12.4); Monocytes # 1.2 K/mcL (0.0-1.3); Monocytes % 11.1 %; Neutrophils # 5.7 K/mcL (1.6-8.9); Platelet Count 209 K/mcL (140-400); Red Blood Count 3.85 M/mcL (4.19-5.50); Red Cell Distribution Width 13.5 % (11.5-14.5); Segmented Neutrophils % 53.7 %; White Blood Count 10.6 K/mcL (4.3-11.1)
[2020-06-11 08:00] LABS: BUN/Creatinine Ratio 10 (6-26); Blood Urea Nitrogen 11 mg/dL (8-23); Calcium 9.8 mg/dL (8.6-10.3); Carbon Dioxide 30 mEq/L (23-29); Chloride 105 mEq/L (98-107); Glucose 86 mg/dL (70-105); Osmolality,Calculated 291 (280-300); Potassium 3.8 mEq/L (3.5-5.1); Sodium 141 mEq/L (136-145); eGFR For African Americans > 60 (> 60); eGFR For Non-African Americans > 60 (> 60)
[2020-06-11] MEDS: Ascorbic Acid 500 MG TABLET PO SCH (08:16)
[2020-06-11] MEDS: Artificial Tears SOLN 15 ML BOTTLE BOTH EYES SCH ×2 (08:24→19:54)
[2020-06-11] MEDS: Magnesium Oxide 400 MG TABLET PO SCH ×2 (08:24→19:54)
[2020-06-11] MEDS: *HR* Digoxin 0.125 MG TABLET PO SCH (08:24)
[2020-06-11] MEDS: Loratadine 10 MG TABLET PO SCH (08:24)
[2020-06-11] MEDS: Cyanocobalamin (B-12) 1,000 MCG TABLET PO SCH (08:24)
[2020-06-11] MEDS: Cholecalciferol (D-3) 1,000 UNIT (25MCG) TABLET PO SCH (08:24)
[2020-06-11] MEDS: Vitamin B Complex/Vit C/Vit E 1 EACH TABLET PO SCH ×2 (08:25→19:55)
[2020-06-11] MEDS: Furosemide 20 MG TABLET PO SCH (08:25)
[2020-06-11] MEDS: polyethylene glycoL 3350 17 GM POWD.PACK PO SCH ×2 (08:25→19:54)
[2020-06-12] MEDS: Piperacillin/Tazobactam 3.375 GM in 0.9 % Sodium Chloride Mini Bag 100 ML IVPB SCH ×3 (05:48→21:45)
[2020-06-12] MEDS: *HR* Enoxaparin 40 MG/0.4 ML SYRINGE SQ SCH (05:49)
[2020-06-12] MEDS ORDERED: Vancomycin 1,250 MG/262.5 ML IV.SOLN IVPB SCH (09:00)
[2020-06-12] MEDS: polyethylene glycoL 3350 17 GM POWD.PACK PO SCH ×2 (09:09→21:45)
[2020-06-12] MEDS: Cholecalciferol (D-3) 1,000 UNIT (25MCG) TABLET PO SCH (09:09)
[2020-06-12] MEDS: Cyanocobalamin (B-12) 1,000 MCG TABLET PO SCH (09:10)
[2020-06-12] MEDS: Loratadine 10 MG TABLET PO SCH (09:10)
[2020-06-12] MEDS: *HR* Digoxin 0.125 MG TABLET PO SCH (09:10)
[2020-06-12] MEDS: Magnesium Oxide 400 MG TABLET PO SCH ×2 (09:10→21:45)
[2020-06-12] MEDS: Ascorbic Acid 500 MG TABLET PO SCH (09:10)
[2020-06-12] MEDS: Furosemide 20 MG TABLET PO SCH (09:11)
[2020-06-12] MEDS: Vitamin B Complex/Vit C/Vit E 1 EACH TABLET PO SCH ×2 (09:12→21:45)
[2020-06-12] MEDS: Artificial Tears SOLN 15 ML BOTTLE BOTH EYES SCH ×2 (10:57→21:46)
[2020-06-13] MEDS: Piperacillin/Tazobactam 3.375 GM in 0.9 % Sodium Chloride Mini Bag 100 ML IVPB SCH ×3 (06:33→20:56)
[2020-06-13] MEDS: Ascorbic Acid 500 MG TABLET PO SCH (06:33)
[2020-06-13] MEDS: *HR* Enoxaparin 40 MG/0.4 ML SYRINGE SQ SCH (06:33)
[2020-06-13] MEDS: polyethylene glycoL 3350 17 GM POWD.PACK PO SCH ×2 (08:54→20:03)
[2020-06-13] MEDS: *HR* Digoxin 0.125 MG TABLET PO SCH ×2 (08:54→08:55)
[2020-06-13] MEDS: Magnesium Oxide 400 MG TABLET PO SCH ×2 (08:55→20:03)
[2020-06-13] MEDS: Cholecalciferol (D-3) 1,000 UNIT (25MCG) TABLET PO SCH (08:55)
[2020-06-13] MEDS: Cyanocobalamin (B-12) 1,000 MCG TABLET PO SCH (08:55)
[2020-06-13] MEDS: Furosemide 20 MG TABLET PO SCH (08:55)
[2020-06-13] MEDS: Loratadine 10 MG TABLET PO SCH (08:56)
[2020-06-13] MEDS: Vitamin B Complex/Vit C/Vit E 1 EACH TABLET PO SCH ×2 (08:56→20:03)
[2020-06-13] MEDS: Artificial Tears SOLN 15 ML BOTTLE BOTH EYES SCH ×2 (09:10→20:54)
[2020-06-14] MEDS: Piperacillin/Tazobactam 3.375 GM in 0.9 % Sodium Chloride Mini Bag 100 ML IVPB SCH ×2 (06:07→14:29)
[2020-06-14] MEDS: *HR* Enoxaparin 40 MG/0.4 ML SYRINGE SQ SCH (06:08)
[2020-06-14 07:36] VITALS: BP 125/83
[2020-06-14] MEDS: Cyanocobalamin (B-12) 1,000 MCG TABLET PO SCH (08:18)
[2020-06-14] MEDS: Cholecalciferol (D-3) 1,000 UNIT (25MCG) TABLET PO SCH (08:18)
[2020-06-14] MEDS: Loratadine 10 MG TABLET PO SCH (08:19)
[2020-06-14] MEDS: Furosemide 20 MG TABLET PO SCH (08:19)
[2020-06-14] MEDS: Ascorbic Acid 500 MG TABLET PO SCH (08:19)
[2020-06-14] MEDS: Artificial Tears SOLN 15 ML BOTTLE BOTH EYES SCH (08:19)
[2020-06-14] MEDS: Magnesium Oxide 400 MG TABLET PO SCH (08:19)
[2020-06-14] MEDS: Vitamin B Complex/Vit C/Vit E 1 EACH TABLET PO SCH (08:20)
[2020-06-14] MEDS: polyethylene glycoL 3350 17 GM POWD.PACK PO SCH (08:20)
== END 2020-06-14 18:40 | disposition home or self-care (01) | DRG 949 ==
LOC: INPPIK 18:24
PROVIDERS: ADMIT Family Medicine; ATTEND Family Medicine

== ENCOUNTER 2021-03-19 12:41 | Observation (INO) ==
[2021-03-19 13:11] LABS: Bilirubin,Urine Negative (Negative); Blood,Urine Large (Negative); Clarity,Urine Slightly Cloudy (Clear); Color,Urine Yellow (Yellow); Glucose,Urine (UA) Normal (Normal); Ketones,Urine Negative (Negative); Leukocyte Esterase,Urine Large (Negative); Nitrite,Urine Positive (Negative); Protein,Urine 30 mg/dL (Neg-Trace); Urobilinogen,Urine Normal (Normal)
[2021-03-19 13:17] LABS: Basophils # 0.1 K/mcL (0.0-0.2); Basophils % 0.6 %; Eosinophils # 0.1 K/mcL (0.0-0.6); Eosinophils % 0.6 %; Hematocrit 37.3 % (37.5-50.1); Hemoglobin 11.6 g/dL (12.9-16.9); Immature Granulocytes % 0.2 % (0-4); Lymphocytes # 0.9 K/mcL (0.6-4.6); Lymphocytes % 7.3 %; Mean Corpuscular HGB Conc 31.1 g/dL (31.6-35.5); Mean Corpuscular Hemoglobin 31.8 pg (28.0-33.3); Mean Corpuscular Volume 102.2 fL (83.0-100.0); Mean Platelet Volume 11.2 fL (9.4-12.4); Monocytes # 1.5 K/mcL (0.0-1.3); Monocytes % 11.9 %; Neutrophils # 9.9 K/mcL (1.6-8.9); Platelet Count 165 K/mcL (140-400); Red Blood Count 3.65 M/mcL (4.19-5.50); Red Cell Distribution Width 15.7 % (11.5-14.5); Segmented Neutrophils % 79.4 %; White Blood Count 12.5 K/mcL (4.3-11.1)
[2021-03-19 13:19] LABS: Bacteria,Urine Many per hpf (None-Few); WBC,Urine TNTC per hpf (0-3)
[2021-03-19 13:33] LABS: Alanine Aminotransferase 18 Units/L (7-52); Albumin 3.6 g/dL (3.5-5.7); Albumin/Globulin Ratio 0.9 (1.1-2.2); Alkaline Phosphatase 74 Units/L (34-104); Aspartate Amino Transferase 22 Units/L (13-39); BUN/Creatinine Ratio 18 (6-26); Bilirubin,Indirect 0.4 mg/dL (0.0-1.0); Bilirubin,Total 0.4 mg/dL (0.3-1.0); Blood Urea Nitrogen 23 mg/dL (8-23); Carbon Dioxide 26 mEq/L (23-29); Chloride 104 mEq/L (98-107); Glucose 112 mg/dL (70-105); Lipase 16 Units/L (11-82); Osmolality,Calculated 290 (280-300); Sodium 138 mEq/L (136-145); Total Protein 7.6 g/dL (6.4-8.9); eGFR For African Americans > 60 (> 60); eGFR For Non-African Americans 57 (> 60)
[2021-03-19 13:34] LABS: Troponin I < 0.03 ng/mL (< 0.04)
[2021-03-19] MEDS ORDERED: Ondansetron 4 MG/2 ML VIAL IVP PRN (14:10)
[2021-03-19] MEDS ORDERED: Acetaminophen 325 MG TABLET PO PRN (14:10)
[2021-03-19] MEDS ORDERED: Naloxone 0.4 MG/ML INJ IVP PRN (14:10)
[2021-03-19] MEDS: 0.9 % Sodium Chloride 1,000 ML IVC SCH (16:12)
[2021-03-19] MEDS: Piperacillin/Tazobactam 3.375 GM in 0.9 % Sodium Chloride Mini Bag 100 ML IVPB SCH (16:13)
[2021-03-19] MEDS ORDERED: Saline Nasal Spray 44 ML BOTTLE NS PRN (17:02)
[2021-03-19] MEDS ORDERED: Levalbuterol Neb 1.25 MG/3 ML IH PRN (17:02)
[2021-03-19] MEDS ORDERED: OLOPATADINE HCL OP PRN (17:02)
[2021-03-19] MEDS: polyethylene glycoL 3350 17 GM POWD.PACK PO SCH (20:55)
[2021-03-19] MEDS: Vitamin B Complex/Vit C/Vit E 1 EACH TABLET PO SCH (20:55)
[2021-03-19] MEDS: Magnesium Oxide 400 MG TABLET PO SCH (20:55)
[2021-03-19] MEDS: Artificial Tears SOLN 15 ML BOTTLE OP SCH (20:56)
[2021-03-19] MEDS ORDERED: LACTOSE REDUCED FOOD PO SCH (21:00)
[2021-03-20] MEDS: Piperacillin/Tazobactam 3.375 GM in 0.9 % Sodium Chloride Mini Bag 100 ML IVPB SCH ×3 (00:21→16:21)
[2021-03-20] MEDS: 0.9 % Sodium Chloride 1,000 ML IVC SCH ×2 (05:10→19:08)
[2021-03-20 07:29] LABS: Basophils # 0.1 K/mcL (0.0-0.2); Basophils % 0.5 %; Eosinophils # 0.2 K/mcL (0.0-0.6); Eosinophils % 1.4 %; Hematocrit 31.7 % (37.5-50.1); Hemoglobin 10.3 g/dL (12.9-16.9); Immature Granulocytes % 0.4 % (0-4); Lymphocytes # 1.2 K/mcL (0.6-4.6); Lymphocytes % 11.4 %; Mean Corpuscular HGB Conc 32.5 g/dL (31.6-35.5); Mean Corpuscular Hemoglobin 31.4 pg (28.0-33.3); Mean Corpuscular Volume 96.6 fL (83.0-100.0); Mean Platelet Volume 10.7 fL (9.4-12.4); Monocytes # 1.5 K/mcL (0.0-1.3); Neutrophils # 7.7 K/mcL (1.6-8.9); Platelet Count 153 K/mcL (140-400); Red Blood Count 3.28 M/mcL (4.19-5.50); Red Cell Distribution Width 15.1 % (11.5-14.5); Segmented Neutrophils % 72.3 %; White Blood Count 10.7 K/mcL (4.3-11.1)
[2021-03-20 08:06] LABS: BUN/Creatinine Ratio 16 (6-26); Blood Urea Nitrogen 20 mg/dL (8-23); Calcium 9.1 mg/dL (8.6-10.3); Carbon Dioxide 29 mEq/L (23-29); Chloride 106 mEq/L (98-107); Glucose 99 mg/dL (70-105); Osmolality,Calculated 293 (280-300); Potassium 3.5 mEq/L (3.5-5.1); Sodium 140 mEq/L (136-145); eGFR For African Americans > 60 (> 60); eGFR For Non-African Americans 57 (> 60)
[2021-03-20] MEDS: polyethylene glycoL 3350 17 GM POWD.PACK PO SCH ×2 (08:22→20:41)
[2021-03-20] MEDS: Fluticasone Propionate Nasal 50 MCG/SPRAY BOTTLE NS SCH (08:23)
[2021-03-20] MEDS: Vitamin B Complex/Vit C/Vit E 1 EACH TABLET PO SCH ×2 (08:24→20:41)
[2021-03-20] MEDS: Loratadine 10 MG TABLET PO SCH (08:25)
[2021-03-20] MEDS: Furosemide 20 MG TABLET PO SCH (08:25)
[2021-03-20] MEDS: *HR* Digoxin 0.125 MG TABLET PO SCH (08:26)
[2021-03-20] MEDS: Magnesium Oxide 400 MG TABLET PO SCH ×2 (08:26→20:41)
[2021-03-20] MEDS: Cholecalciferol (D-3) 1,000 UNIT (25MCG) TABLET PO SCH (08:27)
[2021-03-20] MEDS: Cyanocobalamin (B-12) 1,000 MCG TABLET PO SCH (08:27)
[2021-03-20] MEDS: Artificial Tears SOLN 15 ML BOTTLE OP SCH ×3 (08:37→20:42)
[2021-03-21] MEDS: Piperacillin/Tazobactam 3.375 GM in 0.9 % Sodium Chloride Mini Bag 100 ML IVPB SCH ×2 (00:10→08:12)
[2021-03-21 07:44] VITALS: BP 126/71; PULSE 70; RESP 18; TEMP 97.6; O2SAT 94
[2021-03-21 07:50] LABS: BUN/Creatinine Ratio 15 (6-26); Blood Urea Nitrogen 18 mg/dL (8-23); Calcium 9.5 mg/dL (8.6-10.3); Carbon Dioxide 26 mEq/L (23-29); Chloride 106 mEq/L (98-107); Glucose 81 mg/dL (70-105); Osmolality,Calculated 291 (280-300); Potassium 3.8 mEq/L (3.5-5.1); Sodium 140 mEq/L (136-145); eGFR For African Americans > 60 (> 60); eGFR For Non-African Americans 59 (> 60)
[2021-03-21] MEDS: 0.9 % Sodium Chloride 1,000 ML IVC SCH (08:12)
[2021-03-21] MEDS: Cholecalciferol (D-3) 1,000 UNIT (25MCG) TABLET PO SCH (08:18)
[2021-03-21] MEDS: Loratadine 10 MG TABLET PO SCH (08:18)
[2021-03-21] MEDS: Furosemide 20 MG TABLET PO SCH (08:19)
[2021-03-21] MEDS: Magnesium Oxide 400 MG TABLET PO SCH (08:19)
[2021-03-21] MEDS: Vitamin B Complex/Vit C/Vit E 1 EACH TABLET PO SCH (08:19)
[2021-03-21] MEDS: *HR* Digoxin 0.125 MG TABLET PO SCH (08:20)
[2021-03-21] MEDS: Cyanocobalamin (B-12) 1,000 MCG TABLET PO SCH (08:20)
[2021-03-21] MEDS: Fluticasone Propionate Nasal 50 MCG/SPRAY BOTTLE NS SCH (08:21)
[2021-03-21] MEDS: Artificial Tears SOLN 15 ML BOTTLE OP SCH (08:21)
[2021-03-21] MEDS: polyethylene glycoL 3350 17 GM POWD.PACK PO SCH (09:37)
[2021-03-21 09:46] LABS: Hematocrit 35.6 % (37.5-50.1); Hemoglobin 11.3 g/dL (12.9-16.9); Mean Corpuscular HGB Conc 31.7 g/dL (31.6-35.5); Mean Corpuscular Hemoglobin 31.3 pg (28.0-33.3); Mean Corpuscular Volume 98.6 fL (83.0-100.0); Mean Platelet Volume 10.8 fL (9.4-12.4); Platelet Count 170 K/mcL (140-400); Red Blood Count 3.61 M/mcL (4.19-5.50); White Blood Count 8.7 K/mcL (4.3-11.1)
== END 2021-03-21 09:45 | disposition home health service (06) ==
LOC: INPPIK 12:41 → EMEROOPIK 12:41 → INPPIK 15:00
PROVIDERS: ADMIT Internal Medicine; ATTEND Internal Medicine